=== PATIENT | female | born 1945 | race Caucasian/White ===

== ENCOUNTER → 2016-07-22 | Outpatient (CLI) | payer MEDICARE ==
--- NOTE | 2016-07-22 11:48 | US ---
EXAMINATION TYPE: US bladder DATE OF EXAM: 07/22/2016 COMPARISON: NONE CLINICAL HISTORY: Urinary tract infection N39.0. Frequent UTI's EXAM MEASUREMENTS: Post Void Residual Volume: 102.5 mL Color Doppler performed to assess ureteral jets. Bilateral Jets seen: yes Normal Post Void Residual (less than 50ml): no Images of bladder show no intraluminal mass or wall thickening. IMPRESSION: Abnormal post void residual noted.
== END | disposition home or self-care (01) ==
LOC: RADUSWWP 10:50
PROVIDERS: ATTEND Family Medicine
DX: N39.0 Urinary tract infection, site not specified (principal)
CPT/HCPCS: 76857

== ENCOUNTER → 2016-08-19 | Outpatient (CLI) | payer MEDICARE ==
--- NOTE | 2016-08-19 09:37 | US ---
EXAMINATION TYPE: US kidneys/renal and bladder DATE OF EXAM: 08/19/2016 COMPARISON: CT 12/23/2012 CLINICAL HISTORY: 71-year-old female Recurrent UTI R93.4. TECHNIQUE: Multiple sonographic images of the kidneys and bladder were obtained. FINDINGS: Right Kidney: 10.9 x 5.2 x 4.7 cm. No hydronephrosis. There is an echogenic focus at the lower pole measuring 7 mm. Left Kidney: 11.7 x 4.4 x 5.5 cm. No hydronephrosis. A round echogenic lesion in the upper pole measu res 3.6 x 2.8 x 3.2 cm. The bladder is initially partially distended. Post Void Residual Volume: 101.0 mL, abnormally eleva diana. Neither ureteral jet is seen during the course of the exam. IMPRESSION: 1. No hydronephrosis. 2. Hyperechoic lesion left upper pole redemonstrated. However, as compared to the 2013 CT, it has enl arged from 2.9 cm now measuring 3.6 cm. 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 Note that there is increasing risk for spontaneous hemorrhage when the lesion measures 4 cm or greater. Follow-up as indicated. 3. Sonographic findings suggest urinary retention with an abnormal post void bladder volume of 101 mL .
== END | disposition home or self-care (01) ==
LOC: RADUSWWP 08:47
PROVIDERS: ATTEND Urology
DX: N28.9 Disorder of kidney and ureter, unspecified (principal); N39.0 Urinary tract infection, site not specified
CPT/HCPCS: 76770

== ENCOUNTER → 2019-01-24 | Outpatient (CLI) | payer MEDICARE ==
--- NOTE | 2019-01-24 14:11 | CT ---
EXAMINATION TYPE: CT abdomen pelvis w con DATE OF EXAM: 01/24/2019 HISTORY: Right flank pain and nausea. CT DLP: 1608.2mGycm Automated Exposure Control for Dose Reduction was Utilized. CONTRAST: CT scan of the abdomen and pelvis is performed with IV Contrast, patient injected with 100 mL of Isov ue 300. COMPARISON: Renal ultrasound August 19, 2016. CT abdomen and pelvis December 23, 2012. FINDINGS: LUNG BASES: Coronary artery calcification RCA distribution is redemonstrated. Calcification at level of the mitral valve again seen LIVER/GB: Cholecystectomy clips are redemonstrated. PANCREAS: No significant abnormality is seen. SPLEEN: No significant abnormality is seen. ADRENALS: No significant abnormality is seen. KIDNEYS: Symmetric cortical medullary uptake and excretion from both kidneys. There is persistent exo phytic round mass anterior from upper pole left kidney measuring 3.5 x 2.7 cm axial image 22-containi ng fat and soft tissue density consistent with angiomyolipoma. This is slightly increased in size fro m 2013. New 4 to 5 mm calculus lower pole right kidney coronal image 58. No left-sided renal calculi. New mild pyelocaliectasis without significant hydroureter or obstructing ureteral calculi. Focus of calcification measuring 5 mm long axis in bladder dependently just left of midline axial image 69 not significantly changed from 2013 suspected within bladder wall, consider product of chronic inflammat ion. BOWEL: Oral contrast reaches level distal transverse colon. No suspicious small or large bowel dilata tion. Moderate prominence of fecal material in rectum.. UTERUS/ADNEXA: Uterus surgically absent. A few scattered adjacent pelvic phleboliths. Appendix normal in size from base of cecum in the right lower quadrant. LYMPH NODES: No greater than 1cm abdominal or pelvic lymph nodes are appreciated. OSSEOUS STRUCTURES: No significant abnormality is seen. OTHER: No significant additional abnormality is seen. IMPRESSION: There is mild bilateral pyelocaliectasis without hydroureter or obstructing ureteral calc vazquez. There is incidental new 4 to 5 mm lower pole nonobstructing right renal calculus. No acute findi ngs seen to account for patient's right flank pain and nausea.
== END | disposition home or self-care (01) ==
LOC: RADCTMAIN 10:57
PROVIDERS: ATTEND Family Medicine
DX: N20.0 Calculus of kidney (principal); N13.30 Unspecified hydronephrosis
CPT/HCPCS: 74177; Q9967 ×2

== ENCOUNTER 2020-04-12 11:36 | Day surgery (SDC) | payer MEDICARE ==
[2020-04-11 12:15] VITALS: BMI 36.6
[~2020-04-12 11:36] MED LIST: LACTATED RINGERS 1,000 ML IV SCH
[2020-04-12 12:08] VITALS: RESP 16; TEMP 98.8
[2020-04-12] MEDS ORDERED: ONDANSETRON 4 MG/2 ML VIAL ONE (12:27)
[2020-04-12] MEDS ORDERED: LIDOCAINE 1% INJ 10MG/ML (20 ML MDV) ONE (12:43)
[2020-04-12] MEDS ORDERED: PROPOFOL 10 MG/ML 20 ML VIAL IV ONE (12:43)
--- NOTE | 2020-04-12 13:05 | P.PCN ---
Date of Procedure: 04/12/20 Procedure(s) Performed: BRIEF HISTORY: Patient is a 74-year-old pleasant White female scheduled for an elective colonoscopy as a part of Evaluation of prior history of colon polyps. Last colonoscopy was 8 years ago. PROCEDURE PERFORMED: Colonoscopy with snare polypectomy PREOPERATIVE DIAGNOSIS: History of colon polyps. IV sedation per Anesthesia. PROCEDURE: After informed consent was obtained, the patient, was brought into the endoscopy unit. IV sedation was administered by Anesthesia under continuous monitoring. Digital rectal examination was normal. Initially the Olympus CF-160 flexible video colonoscope was then inserted in the rectum, gradually advanced into the cecum without any difficulty. Careful examination was performed as the scope was gradually being withdrawn. Ileocecal valve and the appendiceal orifice were visualized and appeared normal. Prep was excellent. Mucosa of the cecum, normal. In the ascending colon there was a 1 cm broad-based polyp removed by snare polypectomy. In the hepatic flexure there was a 5 mm polyp removed by snare polypectomy. In the transverse colon there was another 5 mm sessile polyp removed by snare polypectomy and in the descending colon there was a 1 cm polyp removed by snare polypectomy. Rest of the ascending colon, transverse colon, descending colon, sigmoid colon, and rectum appeared normal. Retroflexion was performed in the rectum and no lesions were seen. The patient tolerated the procedure well. IMPRESSION: 1 cm ascending colon polyp status post polypectomy 5 mm hepatic flexure polyp status post polypectomy 5 mm transverse colon polyp status post polypectomy 1 cm descending colon polyp status post polypectomy RECOMMENDATIONS: Findings of this examination were discussed with the patient as well as a family. she was advised to follow with the biopsy results. If the biopsy shows an adenoma she can have a repeat colonoscopy in 3 years. .
[2020-04-12 13:25] VITALS: BP 110/71; PULSE 68
== END 2020-04-12 13:57 | disposition home or self-care (01) ==
LOC: ORWHC2ENDO 11:36
PROVIDERS: ATTEND Internal Medicine Gastroenterology
DX: Z12.11 Encounter for screening for malignant neoplasm of colon (principal); D12.2 Benign neoplasm of ascending colon; D12.3 Benign neoplasm of transverse colon; D12.4 Benign neoplasm of descending colon; Z86.010 Personal history of colon polyps; J45.909 Unspecified asthma, uncomplicated; F31.9 Bipolar disorder, unspecified; Z79.899 Other long term (current) drug therapy; Z88.5 Allergy status to narcotic agent
CPT/HCPCS: 88305; 45385; J2405; J2001; J2704

== ENCOUNTER → 2020-06-20 | Outpatient (CLI) | payer MEDICARE ==
--- NOTE | 2020-06-21 14:59 | MM ---
Reason for exam: screening (asymptomatic). Last mammogram was performed 2 years and 6 months ago. History: Patient is postmenopausal. Family history of breast cancer in grandmother. Took estrogen for 7 years 1 month. Physical Findings: A clinical breast exam by your physician is recommended on an annual basis and results should be correlated with mammographic findings. MG 3D Screening Mammo W/Cad Bilateral CC and MLO view(s) were taken. Prior study comparison: December 20, 2017, bilateral MG 3d screening mammo w/cad. February 05, 2016, bilateral MG 3d screening mammo w/cad. The breast tissue is almost entirely fat. No significant changes when compared with prior studies. ASSESSMENT: Benign, BI-RAD 2 RECOMMENDATION: Routine screening mammogram of both breasts in 1 year.
== END | disposition home or self-care (01) ==
LOC: RADMAMWWP 14:03
PROVIDERS: ATTEND Family Medicine
DX: Z12.31 Encounter for screening mammogram for malignant neoplasm of breast (principal); Z78.0 Asymptomatic menopausal state; Z80.3 Family history of malignant neoplasm of breast
CPT/HCPCS: 77063; 77067

== ENCOUNTER → 2021-06-12 | Outpatient (CLI) | payer MEDICARE ==
--- NOTE | 2021-06-12 12:05 | CT ---
EXAMINATION TYPE: CT angio chest DATE OF EXAM: 06/12/2021 COMPARISON: None HISTORY: PE CT DLP: 503.50 mGycm CONTRAST: CT chest with contrast and 3D reconstruction with MIP imaging is performed without and with IV Contra st, patient injected with 100 ml mL of Isovue 370. Contrast-enhanced CT of the chest was performed through the course of the pulmonary arteries with atif g and mediastinal window settings submitted. 3D reconstruction with MIP imaging was also performed. PULMONARY ARTERIES: The pulmonary arteries and their major tributaries are patent. I do not see mayelin dence for sizable filling defect to suggest pulmonary embolic process. LUNGS: The lungs are clear and free of infiltrate. No evidence for atelectasis. No pulmonary nodule or mass is detected. No pleural effusion. MEDIASTINUM: Thoracic aorta is of normal caliber,however, evaluation is limited given timing of the contrast bolus. If there is concern for thoracic aortic pathology consider ARLINE. Correlate clinicall y . The heart is not enlarged. No evidence for mediastinal mass. No mediastinal lymph nodes greater than 1cm. HILAR STRUCTURES: No evidence for mass. No hilar lymph nodes greater than 1 cm. UPPER ABDOMEN: No significant abnormality is seen. IMPRESSION: 1. No evidence for Pulmonary embolism at this time.
== END | disposition home or self-care (01) ==
LOC: RADCTMAIN 10:26
PROVIDERS: ATTEND Family Medicine
DX: I26.99 Other pulmonary embolism without acute cor pulmonale (principal)
CPT/HCPCS: 82565; 84520; 71275; 36415; Q9967

== ENCOUNTER 2021-10-08 16:10 | Emergency (ER) | payer MEDICARE ==
[2021-10-08 16:20] VITALS: TEMP 98
--- NOTE | 2021-10-08 17:04 | ED ---
Lower Extremity Injury HPI - General Chief Complaint: Extremity Injury, Lower Stated Complaint: lower back pain, r/o blood clot Time Seen by Provider: 10/08/21 16:55 Source: patient, RN notes reviewed, old records reviewed Mode of arrival: ambulatory Limitations: no limitations - History of Present Illness Initial Comments: 76-year-old female sent by Dr. Duncan for rule out DVT of left leg. Patient states that she's had increased pain and swelling to the calf for the past 3 days. She is currently being treated for cellulitis of the right leg. Denies any fevers, chest pain or shortness of breath. -: days(s) (3) Severity scale (1-10): 5 Worsens With: palpation - Related Data Home Medications Medication Instructions Recorded Confirmed ALPRAZolam [Xanax] 0.25 mg PO BID PRN 03/26/20 04/12/20 lamoTRIgine [LaMICtal] 150 mg PO DAILY 03/26/20 04/12/20 Allergies Allergy/AdvReac Type Severity Reaction Status Date / Time codeine Allergy Nausea & Verified 10/08/21 16:20 Vomiting Review of Systems ROS Statement: Those systems with pertinent positive or pertinent negative responses have been documented in the HPI. ROS Other: All systems not noted in ROS Statement are negative. Past Medical History Past Medical History: Asthma, Osteoarthritis (OA) Additional Past Medical History / Comment(s): Hx pancreatitis History of Any Multi-Drug Resistant Organisms: None Reported Past Surgical History: Hysterectomy, Joint Replacement, Orthopedic Surgery Additional Past Surgical History / Comment(s): Right knee replacement, cystocele, rectocele, Rt shoulder rotator cuff Past Anesthesia/Blood Transfusion Reactions: Family History of Problems w/ Anesthesia, Postoperative Nausea & Vomiting (PONV) Additional Past Anesthesia/Blood Transfusion Reaction / Comment(s): Mother has PONV Past Psychological History: Anxiety, Bipolar Smoking Status: Never smoker Past Alcohol Use History: None Reported Past Drug Use History: None Reported - Past Family History Brother(s) Family Medical History: Cancer Additional Family Medical History / Comment(s): throat, lung cancer General Exam Limitations: no limitations General appearance: alert, in no apparent distress Eye exam: Absent: scleral icterus, conjunctival injection Respiratory exam: Absent: respiratory distress, accessory muscle use Cardiovascular Exam: Present: regular rate Extremities exam: Present: pedal edema Left Lower Leg exam: Present: full ROM, tenderness, swelling, Homans' sign Right Lower Leg exam: Present: tenderness (Currently being treated for cellulitis ) Course Vital Signs 10/08/21 10/08/21 16:17 18:56 Temperature 98 F Pulse Rate 92 91 Respiratory 20 18 Rate Blood Pressure 173/91 158/92 O2 Sat by Pulse 97 96 Oximetry Medical Decision Making - Medical Decision Making Patient sent by primary care doctor to rule out DVT left leg. Ultrasound Doppler left lower extremity shows evidence of chronic deep vein thrombosis in the mid femoral vein She states she was diagnosed with a DVT in the left leg and had an IVC filter placed at [facility] in August and was on heparin at that time. She started to bleed within the right leg therefore they discontinued her heparin. Patient's leg is pink warm with strong pedal pulses. Case discussed with Dr. Sierra. This appears to be a chronic DVT. At this time we will not reinitiate anticoagulation and patient will be directed to follow up with primary care doctor and vascular. I discussed results with the patient and she is agreeable to this plan of care. Strict return parameters were discussed. 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 Duncan and vascular as directed. Return to the emergency room with any new or concerning symptoms including increased pain, pallor or discoloration. Is patient prescribed a controlled substance at d/c from ED?: No Referrals: Lj Duncan DO [Primary Care Provider] - 1-2 days Elia Romero DO [STAFF PHYSICIAN] - 1-2 days Time of Disposition: 19:02
--- NOTE | 2021-10-08 18:17 | US ---
EXAMINATION TYPE: US venous doppler duplex LE LT DATE OF EXAM: 10/08/2021 6:06 PM COMPARISON: NONE CLINICAL HISTORY: r/o dvt. Patient states she had a DVT in her left leg diagnosed at [facility] in of August. Patient states she was on heparin, but not anymore. Left calf pain SIDE PERFORMED: Left TECHNIQUE: The lower extremity deep venous system is examined utilizing real time linear array sonog marisa with graded compression, doppler sonography and color-flow sonography. VESSELS IMAGED: Common Femoral Vein Deep Femoral Vein Greater Saphenous Vein * Femoral Vein Popliteal Vein Small Saphenous Vein * Proximal Calf Veins (* superficial vessels) Left Leg: Echoes seen in mid femoral vein and was partially compressible. Prox and distal fem vein a ppear wnl. IMPRESSION: There is evidence for some chronic deep vein thrombosis in the mid femoral vein.
[2021-10-08 18:58] VITALS: BP 158/92; PULSE 91; RESP 18
== END 2021-10-08 19:17 | disposition home or self-care (01) ==
LOC: EC 16:10
DX: I82.512 Chronic embolism and thrombosis of left femoral vein (principal); J45.909 Unspecified asthma, uncomplicated; M19.90 Unspecified osteoarthritis, unspecified site; F41.9 Anxiety disorder, unspecified; F31.9 Bipolar disorder, unspecified; Z88.5 Allergy status to narcotic agent; Z79.899 Other long term (current) drug therapy
CPT/HCPCS: 99283

== ENCOUNTER 2022-01-02 16:13 | Emergency (ER) | payer MEDICARE ==
[2022-01-02 17:15] VITALS: BP 140/81; PULSE 76; RESP 20; TEMP 98.1
--- NOTE | 2022-01-02 17:47 | US ---
EXAMINATION TYPE: US venous doppler duplex LE RT DATE OF EXAM: 01/02/2022 5:40 PM COMPARISON: NONE CLINICAL HISTORY: Pain. Bruising to right ankle, h/o dvt in left leg a year ago SIDE PERFORMED: Right TECHNIQUE: The lower extremity deep venous system is examined utilizing real time linear array sonog marisa with graded compression, doppler sonography and color-flow sonography. VESSELS IMAGED: Common Femoral Vein Deep Femoral Vein Greater Saphenous Vein * Femoral Vein Popliteal Vein Small Saphenous Vein * Proximal Calf Veins (* superficial vessels) Right Leg: Negative for DVT IMPRESSION: No sign of deep vein thrombosis in the right leg.
--- NOTE | 2022-01-02 19:18 | ED ---
General Adult HPI - General Chief complaint: Extremity Injury, Lower Stated complaint: Poss blood clot in R leg Time Seen by Provider: 01/02/22 18:49 Source: patient Mode of arrival: ambulatory Limitations: no limitations - History of Present Illness Initial comments: Patient is a 76-year-old female presenting with chief complaint of bruising to the right lower leg. Patient is concerned for blood clot. Patient has history of blood clots. She currently has an IVC filter. No known injury or trauma. No numbness or tingling. No redness or swelling. No fever or chills. No chest pain or difficulty breathing. No discoloration. - Related Data Home Medications Medication Instructions Recorded Confirmed ALPRAZolam [Xanax] 0.25 mg PO BID PRN 03/26/20 04/12/20 lamoTRIgine [LaMICtal] 150 mg PO DAILY 03/26/20 04/12/20 Allergies Allergy/AdvReac Type Severity Reaction Status Date / Time codeine Allergy Nausea & Verified 01/02/22 17:15 Vomiting Review of Systems ROS Statement: Those systems with pertinent positive or pertinent negative responses have been documented in the HPI. ROS Other: All systems not noted in ROS Statement are negative. Past Medical History Past Medical History: Asthma, Osteoarthritis (OA) Additional Past Medical History / Comment(s): Hx pancreatitis, DVT History of Any Multi-Drug Resistant Organisms: None Reported Past Surgical History: Hysterectomy, Joint Replacement, Orthopedic Surgery Additional Past Surgical History / Comment(s): Right knee replacement, cystocele, rectocele, Rt shoulder rotator cuff Past Anesthesia/Blood Transfusion Reactions: Family History of Problems w/ Anesthesia, Postoperative Nausea & Vomiting (PONV) Additional Past Anesthesia/Blood Transfusion Reaction / Comment(s): Mother has PONV Past Psychological History: Anxiety, Bipolar Smoking Status: Never smoker Past Alcohol Use History: Occasional Past Drug Use History: None Reported - Past Family History Brother(s) Family Medical History: Cancer Additional Family Medical History / Comment(s): throat, lung cancer General Exam Limitations: no limitations General appearance: alert, in no apparent distress Head exam: Present: atraumatic, normocephalic, normal inspection Eye exam: Present: normal appearance Neck exam: Present: normal inspection Respiratory exam: Present: normal lung sounds bilaterally. Absent: respiratory distress, wheezes, rales, rhonchi, stridor Cardiovascular Exam: Present: regular rate, normal rhythm, normal heart sounds. Absent: systolic murmur, diastolic murmur, rubs, gallop, clicks Extremities exam: Present: normal inspection, full ROM, pedal edema (Equal bilateral edema, patient states this is her baseline). Absent: tenderness, joint swelling, calf tenderness Neurological exam: Present: alert, oriented X3, CN II-XII intact Psychiatric exam: Present: normal affect, normal mood Skin exam: Present: warm, dry, intact, other (Small area of bruising near the right ankle). Absent: rash Course Vital Signs 01/02/22 17:12 Temperature 98.1 F Pulse Rate 76 Respiratory 20 Rate Blood Pressure 140/81 O2 Sat by Pulse 96 Oximetry Medical Decision Making - Medical Decision Making Patient is a 76-year-old female presenting with chief complaint of ring to the right lower leg. Patient wants to rule out a blood clot she has history of blood clots. Patient had IVC filter. On examination there is a small amount of bruising to the right lower leg, there is equal bilateral edema which patient states is her baseline. No redness, tenderness, warmth, joint swelling, recent injury or trauma. Ultrasound shows no evidence of DVT. Follow-up with PCP. Report back to ER with any new or worsening symptoms. Discussed return parameters and answered all questions. Patient conveyed verbal understanding and agreed to the plan. I discussed this case in detail with my attending Dr. Wilson Disposition Clinical Impression: Superficial bruising of lower leg Disposition: HOME SELF-CARE Condition: Good Instructions (If sedation given, give patient instructions): Deep Vein Thrombosis (ED), Leg Edema (ED) Additional Instructions: Follow-up with PCP. Report back to ER with any new or worsening symptoms. Is patient prescribed a controlled substance at d/c from ED?: No Referrals: Lj Duncan DO [Primary Care Provider] - 1-2 days Time of Disposition: 19:18
== END 2022-01-02 19:31 | disposition home or self-care (01) ==
LOC: EC 16:13
DX: S80.11XA Contusion of right lower leg, initial encounter (principal); F41.9 Anxiety disorder, unspecified; F31.9 Bipolar disorder, unspecified; J45.909 Unspecified asthma, uncomplicated; M19.90 Unspecified osteoarthritis, unspecified site; Z79.899 Other long term (current) drug therapy; Z88.5 Allergy status to narcotic agent; X58.XXXA Exposure to other specified factors, initial encounter
CPT/HCPCS: 99282; 99283

== ENCOUNTER → 2022-06-29 | Outpatient (CLI) | payer MEDICARE ==
--- NOTE | 2022-06-30 19:50 | MM ---
Reason for Exam: Screening (asymptomatic). Last mammogram was performed 2 year(s) and 0 month(s) ago. Patient History: Menarche at age 14. First Full-Term at age 19. Left ovary removed at age 50. Right ovary removed at age 50. Hysterectomy at age 50. Postmenopausal. Patient has history of breast feeding. Estrogen for 7 years, 1 month, until age 60. Maternal grandmother had breast cancer, age 64. Risk Values: Catie 5 year model risk: 1.3%. NCI Lifetime model risk: 3.0%. Prior Study Comparison: 02/05/2016 Bilateral Screening Mammogram, [facility]. 12/20/2017 Bilateral Screening Mammogram, [facility]. 06/20/2020 Bilateral Screening Mammogram, [facility]. Tissue Density: The breast tissue is almost entirely fat. Findings: Analyzed By CAD. Chronic nodularity on the right. There is no suspicious group of microcalcifications or new suspicious mass in either breast. Overall Assessment: Benign, BI-RAD 2 Management: Screening Mammogram of both breasts in 1 year. . Patient should continue monthly self-breast exams. A clinical breast exam by your physician is recommended on an annual basis. This exam should not preclude additional follow-up of suspicious palpable abnormalities. Note on Catie scores and lifetime risk: 1. A Catie score greater than 3% is considered moderate risk. If this is the case, consider specialist referral to assess eligibility for a risk reducing agent. 2. If overall lifetime risk for the development of breast cancer is 20% or higher, the patient may qualify for future screening with alternating mammogram and breast MRI. Electronically signed and approved by: Bruna Zayas M.D. Radiologist
== END | disposition home or self-care (01) ==
LOC: RADMAMWWP 14:43
PROVIDERS: ATTEND Family Medicine
DX: Z12.31 Encounter for screening mammogram for malignant neoplasm of breast (principal); Z78.0 Asymptomatic menopausal state
CPT/HCPCS: 77063; 77067

== ENCOUNTER 2022-09-16 20:06 | Inpatient (IN) | payer MEDICARE ==
[2022-09-16] MEDS ORDERED: MORPHINE SULFATE 4 MG/ML SYRINGE IVP STA (21:13)
[2022-09-16] MEDS ORDERED: ONDANSETRON 4 MG/2 ML VIAL IVP STA (21:13)
[2022-09-16 21:23] LABS: Basophils # (A) 0.1 k/uL (0-0.2); Basophils % (A) 0 %; Eosinophils # (A) 0.2 k/uL (0-0.7); Eosinophils % (A) 1 %; HCT 41.5 % (34.0-46.0); HGB 14.3 gm/dL (11.4-16.0); Lymphocytes # (A) 2.9 k/uL (1.0-4.8); Lymphocytes % (A) 17 %; MCH 30.8 pg (25.0-35.0); MCHC 34.5 g/dL (31.0-37.0); MCV 89.2 fL (80.0-100.0); Mean Platelet Volume 7.8; Monocytes # (A) 0.7 k/uL (0-1.0); Monocytes % (A) 4 %; Neutrophils # (A) 12.7 k/uL (1.3-7.7); Neutrophils % (A) 76 %; Platelet Count 200 k/uL (150-450); RBC 4.66 m/uL (3.80-5.40); WBC 16.8 k/uL (3.8-10.6)
[2022-09-16 21:36] LABS: ALT 65 U/L (4-34); AST 39 U/L (14-36); African American GFR (CKD) >90 (>60 ml/min/1.73 sqM); Alkaline Phosphatase 88 U/L (38-126); Anion Gap 9 mmol/L; Blood Urea Nitrogen 18 mg/dL (7-17); Calcium 9.6 mg/dL (8.4-10.2); Carbon Dioxide 24 mmol/L (22-30); Chloride 104 mmol/L (98-107); Glucose 108 mg/dL (74-99); Non-African American GFR(CKD) 78 (>60 ml/min/1.73 sqM); Potassium 3.5 mmol/L (3.5-5.1); Sodium 137 mmol/L (137-145); Total Bilirubin 0.9 mg/dL (0.2-1.3); Total Protein 6.6 g/dL (6.3-8.2)
--- NOTE | 2022-09-16 22:16 | ED ---
Abdominal Pain HPI - General Chief Complaint: Abdominal Pain Stated Complaint: Back Pain,vomiting Time Seen by Provider: 09/16/22 21:02 Source: patient Mode of arrival: wheelchair Limitations: no limitations - History of Present Illness Initial Comments: 77-year-old female presenting with chief complaint of right-sided flank pain. Pain came on suddenly 1 hour prior to arrival. States that the pain is sharp in nature. She admits to nausea. She states that she has history of recurrent UTIs. Patient states that she was on long-term prednisone and was weaned off 9 weeks ago. No fevers or chills. No chest pain or difficulty breathing. No dysuria or hematuria. No diarrhea. - Related Data Home Medications Medication Instructions Recorded Confirmed ALPRAZolam [Xanax] 0.25 mg PO BID PRN 03/26/20 04/12/20 lamoTRIgine [LaMICtal] 150 mg PO DAILY 03/26/20 04/12/20 Allergies Allergy/AdvReac Type Severity Reaction Status Date / Time codeine Allergy Nausea & Verified 09/16/22 20:15 Vomiting Review of Systems ROS Statement: Those systems with pertinent positive or pertinent negative responses have been documented in the HPI. ROS Other: All systems not noted in ROS Statement are negative. Past Medical History Past Medical History: Asthma, Deep Vein Thrombosis (DVT), Osteoarthritis (OA) Additional Past Medical History / Comment(s): Hx pancreatitis, DVT, kidney stones, History of Any Multi-Drug Resistant Organisms: None Reported Past Surgical History: Hysterectomy, Joint Replacement, Orthopedic Surgery Additional Past Surgical History / Comment(s): Right knee replacement, cystocele, rectocele, Rt shoulder rotator cuff Past Anesthesia/Blood Transfusion Reactions: Family History of Problems w/ Anesthesia, Postoperative Nausea & Vomiting (PONV) Additional Past Anesthesia/Blood Transfusion Reaction / Comment(s): Mother has PONV Past Psychological History: Anxiety, Bipolar Smoking Status: Never smoker Past Alcohol Use History: Occasional Past Drug Use History: None Reported - Past Family History Brother(s) Family Medical History: Cancer Additional Family Medical History / Comment(s): throat, lung cancer General Exam Limitations: no limitations General appearance: alert, in no apparent distress Head exam: Present: atraumatic, normocephalic, normal inspection Eye exam: Present: normal appearance, EOMI Neck exam: Present: normal inspection, full ROM Respiratory exam: Present: normal lung sounds bilaterally. Absent: respiratory distress, wheezes, rales, rhonchi, stridor Cardiovascular Exam: Present: regular rate, normal rhythm, normal heart sounds. Absent: systolic murmur, diastolic murmur, rubs, gallop, clicks GI/Abdominal exam: Present: soft, tenderness (Right-sided). Absent: distended, guarding, rebound, rigid Neurological exam: Present: alert, oriented X3, CN II-XII intact Psychiatric exam: Present: normal affect, normal mood Skin exam: Present: warm, dry, intact, normal color. Absent: rash Course Vital Signs 09/16/22 09/16/22 09/16/22 20:15 21:37 23:17 Temperature 98.8 F Pulse Rate 88 75 89 Respiratory 30 H 20 Rate Blood Pressure 168/75 193/109 150/84 O2 Sat by Pulse 97 98 96 Oximetry Medical Decision Making - Medical Decision Making Was pt. sent in by a medical professional or institution (, PA, RULING MACHINE OPERATOR, urgent care, hospital, or custodial...) When possible be specific @ -No Did you speak to anyone other than the patient for history (EMS, parent, family, police, friend...)? What history was obtained from this source @ -No Did you review nursing and triage notes (agree or disagree)? Why? @ -I reviewed and agree with nursing and triage notes Were old charts reviewed (outside hosp., previous admission, EMS record, old EKG, old radiological studies, urgent care reports/EKG's, custodial records)? Report findings @ -No old charts were reviewed Differential Diagnosis (chest pain, altered mental status, abdominal pain women, abdominal pain men, vaginal bleeding, weakness, fever, dyspnea, syncope, headache, dizziness, GI bleed, back pain, seizure, CVA, palpatations, mental health, musculoskeletal)? @ -MDM Differential Abdominal Pain Women: Appendicitis, Cholecystitis, diverticulosis, ischemic bowel, pancreatitis, hepatitis, UTI, gastroenteritis, AAA, incarcerated hernia, bowel obstruction, constipation, inflammatory bowel, hepatitis, peptic ulcer disease, splenic infarction, perforated viscus, vulvitis, ovarian torsion, PID, kidney stone, placenta abruption... This is not meant to be an all-inclusive list EKG interpreted by me (3pts min.). @ -As above X-rays interpreted by me (1pt min.). @ -None done CT interpreted by me (1pt min.). @ -Stone within the proximal right ureter measuring 1.3 x 0.4 cm which causes moderate hydronephrosis. 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 Hepatic steatosis. 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 U/S interpreted by me (1pt. min.). @ -None done What testing was considered but not performed or refused? (CT, X-rays, U/S, lab s)? Why? @ -None What meds were considered but not given or refused? Why? @ -None Did you discuss the management of the patient with other professionals (professionals i.e. , PA, RULING MACHINE OPERATOR, lab, RT, psych nurse, social work therapist, fitting room associate, teacher, chief security officer, watch caser)? Give summary @ -I spoke with urologist elocution teacher Dr. Acosta, he asked that the patient be placed nothing by mouth and he will stent the patient tomorrow, he requested the patient be admitted to hospitalist. My attending spoke with Dr. Linares who accepted admission Was smoking cessation discussed for >3mins.? @ -No Was critical care preformed (if so, how long)? @ -No Were there social determinants of health that impacted care today? How? (Homelessness, low income, unemployed, alcoholism, drug addiction, transportation, low edu. Level, literacy, decrease access to med. care, [place] [facility], rehab)? @ -No Was there de-escalation of care discussed even if they declined (Discuss DNR or withdrawal of care, Hospice)? DNR status @ -No What co-morbidities impacted this encounter? (DM, HTN, Smoking, COPD, CAD, Cancer, CVA, ARF, Chemo, Hep., AIDS, mental health diagnosis, sleep apnea, morbid obesity)? @ -None Was patient admitted / discharged? Hospital course, mention meds given and route, prescriptions, significant lab abnormalities, going to OR and other pertinent info. @ -77-year-old female presenting with flank pain that started suddenly about an hour prior to arrival. Lab work shows WBC 16.8. Urine shows signs of infection with greater than [address] shows 13 cm obstructing stone. Patient is placed on ceftriaxone after blood cultures are drawn. She will be admitted for evaluation by urology. She is agreeable with this plan. I discussed this case with my attending Dr. Sanders. Undiagnosed new problem with uncertain prognosis? @ -No Drug Therapy requiring intensive monitoring for toxicity (Heparin, Nitro, Insulin, Cardizem)? @ -No Were any procedures done? @ -No Diagnosis/symptom? @ -Kidney stone with pyelonephritis Acute, or Chronic, or Acute on Chronic? @ -acute Uncomplicated (without systemic symptoms) or Complicated (systemic symptoms)? @ -Complicated Side effects of treatment? @ -No Exacerbation, Progression, or Severe Exacerbation? @ -No Poses a threat to life or bodily function? How? (Chest pain, [place], [place], pneumonia, PE, COPD, DKA, ARF, appy, cholecystitis, CVA, Diverticulitis, Homicidal, Suicidal, threat to staff... and all critical care pts) @ -yes - Lab Data Result diagrams: 09/16/22 21:16 09/16/22 21:16 Lab Results 09/16/22 09/16/22 09/16/22 Range/Units 21:16 21:16 21:16 WBC 16.8 H (3.8-10.6) k/uL RBC 4.66 (3.80-5.40) m/uL Hgb 14.3 (11.4-16.0) gm/dL Hct 41.5 (34.0-46.0) % MCV 89.2 (80.0-100.0) fL MCH 30.8 (25.0-35.0) pg MCHC 34.5 (31.0-37.0) g/dL RDW 13.0 (11.5-15.5) % Plt Count 200 (150-450) k/uL MPV 7.8 Neutrophils % 76 % Lymphocytes % 17 % Monocytes % 4 % Eosinophils % 1 % Basophils % 0 % Neutrophils # 12.7 H (1.3-7.7) k/uL Lymphocytes # 2.9 (1.0-4.8) k/uL Monocytes # 0.7 (0-1.0) k/uL Eosinophils # 0.2 (0-0.7) k/uL Basophils # 0.1 (0-0.2) k/uL Sodium 137 (137-145) mmol/L Potassium 3.5 (3.5-5.1) mmol/L Chloride 104 (98-107) mmol/L Carbon Dioxide 24 (22-30) mmol/L Anion Gap 9 mmol/L BUN 18 H (7-17) mg/dL Creatinine 0.75 (0.52-1.04) mg/dL Est GFR (CKD-EPI)AfAm >90 (>60 ml/min/1.73 sqM) Est GFR (CKD-EPI)NonAf 78 (>60 ml/min/1.73 sqM) Glucose 108 H (74-99) mg/dL Plasma Lactic Acid Ishmale 1.4 (0.7-2.0) mmol/L Calcium 9.6 (8.4-10.2) mg/dL Total Bilirubin 0.9 (0.2-1.3) mg/dL AST 39 H (14-36) U/L ALT 65 H (4-34) U/L Alkaline Phosphatase 88 (38-126) U/L Total Protein 6.6 (6.3-8.2) g/dL Albumin 4.0 (3.5-5.0) g/dL Urine Color Urine Appearance (Clear) Urine pH (5.0-8.0) Ur Specific [place] (1.001-1.035) Urine Protein (Negative) Urine Glucose (UA) (Negative) Urine Ketones (Negative) Urine Blood (Negative) Urine Nitrite (Negative) Urine Bilirubin (Negative) Urine Urobilinogen (<2.0) mg/dL Ur Leukocyte Esterase (Negative) Urine RBC (0-5) /hpf Urine WBC (0-5) /hpf Urine WBC Clumps (None) /hpf Ur Squamous Epith Cells (0-4) /hpf Urine Bacteria (None) /hpf Urine Mucus (None) /hpf 09/16/22 Range/Units 22:20 WBC (3.8-10.6) k/uL RBC (3.80-5.40) m/uL Hgb (11.4-16.0) gm/dL Hct (34.0-46.0) % MCV (80.0-100.0) fL MCH (25.0-35.0) pg MCHC (31.0-37.0) g/dL RDW (11.5-15.5) % Plt Count (150-450) k/uL MPV Neutrophils % % Lymphocytes % % Monocytes % % Eosinophils % % Basophils % % Neutrophils # (1.3-7.7) k/uL Lymphocytes # (1.0-4.8) k/uL Monocytes # (0-1.0) k/uL Eosinophils # (0-0.7) k/uL Basophils # (0-0.2) k/uL Sodium (137-145) mmol/L Potassium (3.5-5.1) mmol/L Chloride (98-107) mmol/L Carbon Dioxide (22-30) mmol/L Anion Gap mmol/L BUN (7-17) mg/dL Creatinine (0.52-1.04) mg/dL Est GFR (CKD-EPI)AfAm (>60 ml/min/1.73 sqM) Est GFR (CKD-EPI)NonAf (>60 ml/min/1.73 sqM) Glucose (74-99) mg/dL Plasma Lactic Acid [place]ma[place] (0.7-2.0) mmol/L Calcium (8.4-10.2) mg/dL Total Bilirubin (0.2-1.3) mg/dL AST (14-36) U/L ALT (4-34) U/L Alkaline Phosphatase (38-126) U/L Total Protein (6.3-8.2) g/dL Albumin (3.5-5.0) g/dL Urine Color Light Red Urine Appearance Turbid H (Clear) Urine pH 8.0 (5.0-8.0) Ur Specific [place] 1.021 (1.001-1.035) Urine Protein 2+ H (Negative) Urine Glucose (UA) Negative (Negative) Urine Ketones Trace H (Negative) Urine Blood Moderate H (Negative) Urine Nitrite Negative (Negative) Urine Bilirubin Negative (Negative) Urine Urobilinogen <2.0 (<2.0) mg/dL Ur Leukocyte Esterase Large H (Negative) Urine RBC 37 H (0-5) /hpf Urine WBC >182 H (0-5) /hpf Urine WBC Clumps Moderate H (None) /hpf Ur Squamous Epith Cells 2 (0-4) /hpf Urine Bacteria Occasional H (None) /hpf Urine Mucus Occasional H (None) /hpf Disposition Clinical Impression: Kidney stone, Pyelonephritis Disposition: ADMITTED IP TO THIS [facility] Condition: Fair Time of Disposition: 23:24
[2022-09-16 22:41] LABS: Appearance,Urine Turbid (Clear); Bacteria,Urine Occasional /hpf; Bilirubin,Urine Negative (Negative); Blood,Urine Moderate (Negative); Color,Urine Light Red; Glucose,Urine (UA) Negative (Negative); Ketones,Urine Trace (Negative); Leukocyte Esterase,Urine Large (Negative); Mucus,Urine Occasional /hpf; Nitrite,Urine Negative (Negative); Protein,Urine 2+ (Negative); RBC,Urine 37 /hpf (0-5); Specific Gravity,Urine 1.021 (1.001-1.035); Squamous Epithelial Cell,Urine 2 /hpf (0-4); Urobilinogen,Urine <2.0 mg/dL (<2.0); WBC,Urine >182 /hpf (0-5)
--- NOTE | 2022-09-16 23:05 | CT ---
EXAM: CT Abdomen and Pelvis Without Intravenous Contrast CLINICAL HISTORY: ITS.REASON CT Reason: R flank pain TECHNIQUE: Axial computed tomography images of the abdomen and pelvis without intravenous contrast. CTDI is 27.9 mGy and DLP is 1508.4 mGy-cm. This CT exam was performed using one or more of the following dose reduction techniques: automated exposure control, adjustment of the mA and/or kV according to patient size, and/or use of iterative reconstruction technique. COMPARISON: CT 01/24/2019 FINDINGS: ABDOMEN: Liver: Hepatic steatosis. Gallbladder and bile ducts: Cholecystectomy. Pancreas: Unremarkable. Spleen: Unremarkable. Adrenals: Unremarkable. Kidneys and ureters: Stone within the proximal right ureter measuring 1.3 x 0.4 cm which causes moderate hydronephrosis. 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 Stomach and bowel: Unremarkable. PELVIS: Appendix: No findings to suggest acute appendicitis. Bladder: Unremarkable. Reproductive: Status post hysterectomy. ABDOMEN and PELVIS: Intraperitoneal space: Unremarkable. No free air. No significant fluid collection. Bones/joints: No acute fracture. Soft tissues: Unremarkable. 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 IVC filter in place. Lymph nodes: Unremarkable. IMPRESSION: 1. Stone within the proximal right ureter measuring 1.3 x 0.4 cm which causes moderate hydronephrosis. 2. 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 3. Hepatic steatosis. 4. 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
[2022-09-16] MEDS ORDERED: cefTRIAXone IN SWFI 1,000 MG/10 ML SYRINGE IVP STA (23:16)
[2022-09-16] MEDS ORDERED: NALOXONE 0.4 MG/ML 1 ML VIAL IV PRN (23:20)
[2022-09-16] MEDS: SODIUM CHLORIDE 0.9% 1,000 ML IV SCH (23:28)
[2022-09-16] MEDS: KETOROLAC 15 MG/ML 1 ML VIAL IVP PRN (23:32)
[2022-09-17] MEDS: HYDROmorphone 1 MG/ML 1 ML SYRINGE IVP PRN ×3 (01:48→10:04)
[2022-09-17] MEDS: ONDANSETRON 4 MG/2 ML VIAL IVP PRN (05:03)
[2022-09-17] MEDS ORDERED: PROCHLORPERAZINE INJ 10 MG/2 ML VIAL IVP PRN (06:10)
[2022-09-17] MEDS: KETOROLAC 15 MG/ML 1 ML VIAL IVP PRN ×2 (06:56→20:33)
--- NOTE | 2022-09-17 10:13 | P.GSCN ---
History of Present Illness Consult date: 09/17/22 Reason for Consult: Ureteral stone History of present illness: This is a 77-year-old female presented to the hospital with a 1.3 cm right-sided proximal ureteral stone, she is having flank pain associated with nausea and vomiting. Additionally also evidence of a UTI on urinalysis. Denies any previous history of kidney stones. Denies any dysuria or gross hematuria. No known family history of kidney stone. CT on presentation did show evidence of a 1.3 cm right-sided proximal stone with hydronephrosis. Additionally there is also evidence of a 5 cm left-sided angiomyolipoma. Review of Systems - Constitutional Reports fatigue, Denies chills, Denies fever - Cardiovascular Denies chest pain, Denies shortness of breath - Respiratory Denies cough, Denies 7 - Gastrointestinal Reports abdominal pain, Reports nausea, Reports vomiting - Genitourinary Genitourinary: Reports flank pain, Denies hematuria - Neurological Denies headaches, Denies syncope Past Medical History Past Medical History: Asthma, Deep Vein Thrombosis (DVT), Osteoarthritis (OA) Additional Past Medical History / Comment(s): Hx pancreatitis, DVT, kidney stones, History of Any Multi-Drug Resistant Organisms: None Reported Past Surgical History: Hysterectomy, Joint Replacement, Orthopedic Surgery Additional Past Surgical History / Comment(s): Right knee replacement, cystocele, rectocele, Rt shoulder rotator cuff Past Anesthesia/Blood Transfusion Reactions: Family History of Problems w/ Anesthesia, Postoperative Nausea & Vomiting (PONV) Additional Past Anesthesia/Blood Transfusion Reaction / Comm: Mother has PONV Past Psychological History: Anxiety, Bipolar Smoking Status: Never smoker Past Alcohol Use History: Occasional Past Drug Use History: None Reported - Past Family History Brother(s) Family Medical History: Cancer Additional Family Medical History / Comment(s): throat, lung cancer Medications and Allergies Home Medications Medication Instructions Recorded Confirmed Type ALPRAZolam [Xanax] 0.25 mg PO DAILY PRN 03/26/20 09/17/22 History Furosemide [Lasix] 20 mg PO DAILY 09/17/22 09/17/22 History Metoprolol Succinate (ER) [Toprol 50 mg PO DAILY 09/17/22 09/17/22 History Xl] Vitamin B Complex 1 cap PO DAILY 09/17/22 09/17/22 History Vitamin D3(Unknown Dose) 1 tab PO DAILY 09/17/22 09/17/22 History lamoTRIgine [LaMICtal] 100 mg PO DAILY 09/17/22 09/17/22 History traZODone HCL [Desyrel] 50 mg PO HS 09/17/22 09/17/22 History Allergies Allergy/AdvReac Type Severity Reaction Status Date / Time codeine Allergy Rash/Hives Verified 09/17/22 09:38 Surgical - Exam Vital Signs Temp Pulse Resp BP Pulse Ox 98.8 F 88 30 H 168/75 97 09/16/22 20:15 09/16/22 20:15 09/16/22 20:15 09/16/22 20:15 09/16/22 20:15 - General no distress, moderate pain - Eyes normal ocular movement, no pale - ENT normal nares, normal mucosa - Respiratory normal expansion, normal respiratory effort - Abdomen Abdomen: soft, non tender - Psychiatric oriented to time, oriented to person, oriented to place Results - Labs 09/16/22 21:16 09/16/22 21:16 Abnormal Lab Results - Last 24 Hours (Table) 09/16/22 09/16/22 09/16/22 Range/Units 21:16 21:16 22:20 WBC 16.8 H (3.8-10.6) k/uL Neutrophils # 12.7 H (1.3-7.7) k/uL BUN 18 H (7-17) mg/dL Glucose 108 H (74-99) mg/dL AST 39 H (14-36) U/L ALT 65 H (4-34) U/L Urine Appearance Turbid H (Clear) Urine Protein 2+ H (Negative) Urine Ketones Trace H (Negative) Urine Blood Moderate H (Negative) Ur Leukocyte Esterase Large H (Negative) Urine RBC 37 H (0-5) /hpf Urine WBC >182 H (0-5) /hpf Urine WBC Clumps Moderate H (None) /hpf Urine Bacteria Occasional H (None) /hpf Urine Mucus Occasional H (None) /hpf Diabetes panel 09/16/22 Range/Units 21:16 Sodium 137 (137-145) mmol/L Potassium 3.5 (3.5-5.1) mmol/L Chloride 104 (98-107) mmol/L Carbon Dioxide 24 (22-30) mmol/L BUN 18 H (7-17) mg/dL Creatinine 0.75 (0.52-1.04) mg/dL Glucose 108 H (74-99) mg/dL Calcium 9.6 (8.4-10.2) mg/dL AST 39 H (14-36) U/L ALT 65 H (4-34) U/L Alkaline Phosphatase 88 (38-126) U/L Total Protein 6.6 (6.3-8.2) g/dL Albumin 4.0 (3.5-5.0) g/dL Calcium panel 09/16/22 Range/Units 21:16 Calcium 9.6 (8.4-10.2) mg/dL Albumin 4.0 (3.5-5.0) g/dL Pituitary panel 09/16/22 Range/Units 21:16 Sodium 137 (137-145) mmol/L Potassium 3.5 (3.5-5.1) mmol/L Chloride 104 (98-107) mmol/L Carbon Dioxide 24 (22-30) mmol/L BUN 18 H (7-17) mg/dL Creatinine 0.75 (0.52-1.04) mg/dL Glucose 108 H (74-99) mg/dL Calcium 9.6 (8.4-10.2) mg/dL Adrenal panel 09/16/22 Range/Units 21:16 Sodium 137 (137-145) mmol/L Potassium 3.5 (3.5-5.1) mmol/L Chloride 104 (98-107) mmol/L Carbon Dioxide 24 (22-30) mmol/L BUN 18 H (7-17) mg/dL Creatinine 0.75 (0.52-1.04) mg/dL Glucose 108 H (74-99) mg/dL Calcium 9.6 (8.4-10.2) mg/dL Total Bilirubin 0.9 (0.2-1.3) mg/dL AST 39 H (14-36) U/L ALT 65 H (4-34) U/L Alkaline Phosphatase 88 (38-126) U/L Total Protein 6.6 (6.3-8.2) g/dL Albumin 4.0 (3.5-5.0) g/dL - Imaging CT scan - abdomen: image reviewed (1.3 cm right-sided proximal stone with hydronephrosis, 5 cm left-sided exophytic AML) Assessment and Plan Assessment: This is a 77-year-old female history of a 1.3 cm right ureteral stone in the UTI. Additionally also evidence of a 5 cm left-sided angiomyolipoma. Discussed with her I recommend proceeding with stent insertion given the UTI in the size of the stone. Risks benefits and rational surgery was discussed in detail. Discussed also with her she will eventually require intervention for the AML gi jami that it's greater than 4 cm meter in size. 1.Ureteral stone -OR for cystoscopy and right stent insertion 2. AML -Eventually require referral to interventional radiology for angioembolization as an outpatient
[2022-09-17] MEDS: METOPROLOL SUCCINATE (ER) 50 MG TAB.ER.24H PO SCH (10:42)
[2022-09-17] MEDS: lamoTRIgine 100 MG TAB PO SCH (10:42)
[2022-09-17] MEDS ORDERED: SODIUM CHLORIDE 0.9% 1,000 ML IV ONE ×2 (12:30→14:25)
[2022-09-17] MEDS ORDERED: ONDANSETRON 4 MG/2 ML VIAL IVP ONE (12:30)
[2022-09-17] MEDS ORDERED: DEXAMETHASONE SOD PHOSPHATE 4 MG/ML 1 ML VIAL IVP ONE (12:31)
[2022-09-17] MEDS ORDERED: MIDAZOLAM 2 MG/2 ML VIAL ONE (12:51)
[2022-09-17] MEDS ORDERED: KETAMINE 10 MG/ML 20 ML VIAL ONE (12:51)
[2022-09-17] MEDS ORDERED: LACTATED RINGERS 1,000 ML IV ONE ×2 (14:19→14:42)
--- NOTE | 2022-09-17 14:46 | FL ---
Intraoperative/procedural fluoroscopic services were provided for right ureteral stent placement. Tot al fluoroscopy time is 12 seconds with a total of 1 submitted image to PACS. Total DAP [id number] [id number]. Please see the operative note for further details.
[2022-09-17] MEDS: ENOXAPARIN 40 MG/0.4 ML SYRINGE SQ SCH (18:24)
[2022-09-17] MEDS: SODIUM CHLORIDE 0.9% 1,000 ML IV SCH ×2 (18:28→20:34)
--- NOTE | 2022-09-17 20:30 | P.HPIM ---
History of Present Illness H&P Date: 09/17/22 Chief Complaint: Right flank pain This is a pleasant 77-year-old patient who follows Dr. Duncan. Chronic stable medical conditions include asthma, Taya arthritis, prior history of DVT. Apparently patient had a bleeding with blood tenderness.. And received a [place] filter. Patient's had previous kidney stones. Yesterday around 3:00 patient started off with progressively increasing right flank pain in the back. Significant nausea vomiting. Fevers. Urine color became orangeish. Tired rundown. Presented to ER. Received a dose of IV ceftriaxone in the ER. Patient this afternoon due to go down for surgery by Dr. woodall from urology. Review of systems: GEN.: Fever chills nausea vomiting EYES: None HEENT: None NECK: None RESPIRATORY: None CARDIOVASCULAR: None GASTROINTESTINAL: As above GENITOURINARY: As above MUSCULOSKELETAL: Joint pains LYMPHATICS: None HEMATOLOGICAL: None PSYCHIATRY: None NEUROLOGICAL: None Past medical history to include: Asthma, DVT and bleeding with anticoagulants, [place] filter, kidney stones, pancreatitis, osteoarthritis, bipolar Social history: . Alcohol occasionally. No smoking. Physical examination: VITAL SIGNS: 100, 137, 20, 11 2 x 71, 91% room air GENERAL: BMI 42.1, declining but awake and comfortable. EYES: Pupils equal. Conjunctiva normal. HEENT: External appearance of nose and ears normal, oral cavity grossly normal. NECK: JVD not raised; masses not palpable. HEART: First and second heart sounds are normal; no edema. LUNGS: Respiratory rate normal; clear to auscultation. ABDOMEN: Soft, right renal angle tenderness, liver spleen not palpable, no masses palpable. PSYCH: Alert and oriented x3; mood and affect anxiousl. MUSCULOSKELETAL:No Clubbing/cyanosis;muscles-grossly intact. OA NEUROLOGICAL: Cranial nerves grossly intact; no facial asymmetry, power and sensation grossly intact. LYMPHATICS: No lymph nodes palpable in the axilla and neck INVESTIGATIONS, reviewed in the clinical context: White count 16.8 hemoglobin 14.3 platelets 200 sodium 137 potassium 3.5 BUN 18 creatinine 0.75 AST 39 in 2064 UA: Protein 2+, large leukoesterase, WBC greater than 182 CT abdomen pelvis: States stone within the proximal right ureter 1.3 x 0.4 cm causing moderate hydronephrosis. Hepatic steatosis. 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 Assessment and plan: -Acute right-sided, pyelonephritis secondary to right ureteral stone. Causing sepsis. IV ceftriaxone. IV fluids. -Right proximal ureter 1.3 x 0.4 cm stone causing moderate hydronephrosis Pending surgical intervention by Dr. woodall -Morbid obesity BMI 42.1 Weight loss measures -Primary osteoarthritis Pain medications as needed -Prior history of DVT with [place] filter -Bipolar disorder Lamictal. Desyrel. Xanax when necessary. -Essential hypertension Toprol-XL Discussed with patient. Pending surgical intervention. Subcu Lovenox. Past Medical History Past Medical History: Asthma, Deep Vein Thrombosis (DVT), Osteoarthritis (OA) Additional Past Medical History / Comment(s): Hx pancreatitis, DVT, kidney stones, History of Any Multi-Drug Resistant Organisms: None Reported Past Surgical History: Hysterectomy, Joint Replacement, Orthopedic Surgery Additional Past Surgical History / Comment(s): Right knee replacement, cystocele, rectocele, Rt shoulder rotator cuff Past Anesthesia/Blood Transfusion Reactions: Family History of Problems w/ Anesthesia, Postoperative Nausea & Vomiting (PONV) Additional Past Anesthesia/Blood Transfusion Reaction / Comment(s): Mother has PONV Past Psychological History: Anxiety, Bipolar Smoking Status: Never smoker Past Alcohol Use History: Occasional Past Drug Use History: None Reported - Past Family History Brother(s) Family Medical History: Cancer Additional Family Medical History / Comment(s): throat, lung cancer Medications and Allergies Home Medications Medication Instructions Recorded Confirmed Type ALPRAZolam [Xanax] 0.25 mg PO DAILY PRN 03/26/20 09/17/22 History Furosemide [Lasix] 20 mg PO DAILY 09/17/22 09/17/22 History Metoprolol Succinate (ER) [Toprol 50 mg PO DAILY 09/17/22 09/17/22 History Xl] Vitamin B Complex 1 cap PO DAILY 09/17/22 09/17/22 History Vitamin D3(Unknown Dose) 1 tab PO DAILY 09/17/22 09/17/22 History lamoTRIgine [LaMICtal] 100 mg PO DAILY 09/17/22 09/17/22 History traZODone HCL [Desyrel] 50 mg PO HS 09/17/22 09/17/22 History Allergies Allergy/AdvReac Type Severity Reaction Status Date / Time codeine Allergy Rash/Hives Verified 09/17/22 09:38 Physical Exam Vitals: Vital Signs Temp Pulse Pulse Resp BP BP Pulse Ox 09/17/22 07:52 100.0 F H 137 H 20 112/71 91 L 09/17/22 01:05 97.5 F L 80 18 151/75 93 L 09/17/22 00:30 97.2 F L 88 18 144/77 98 09/16/22 23:17 89 150/84 96 09/16/22 21:37 75 20 193/109 98 09/16/22 20:15 98.8 F 88 30 H 168/75 97 Intake and Output 09/16/22 09/17/22 09/17/22 22:59 06:59 14:59 Other: Voiding Method Toilet Weight 104.326 kg 104.326 kg Results CBC & Chem 7: 09/16/22 21:16 09/16/22 21:16 Labs: Abnormal Lab Results - Last 24 Hours (Table) 09/16/22 09/16/22 09/16/22 Range/Units 21:16 21:16 22:20 WBC 16.8 H (3.8-10.6) k/uL Neutrophils # 12.7 H (1.3-7.7) k/uL BUN 18 H (7-17) mg/dL Glucose 108 H (74-99) mg/dL AST 39 H (14-36) U/L ALT 65 H (4-34) U/L Urine Appearance Turbid H (Clear) Urine Protein 2+ H (Negative) Urine Ketones Trace H (Negative) Urine Blood Moderate H (Negative) Ur Leukocyte Esterase Large H (Negative) Urine RBC 37 H (0-5) /hpf Urine WBC >182 H (0-5) /hpf Urine WBC Clumps Moderate H (None) /hpf Urine Bacteria Occasional H (None) /hpf Urine Mucus Occasional H (None) /hpf Thrombosis Risk Factor Assmnt - Choose All That Apply Each Factor Represents 1 point: Obesity (BMI >25) Other Risk Factors: Yes Each Risk Factor Represents 3 Points: Age 75 years or older, History of DVT/PE Thrombosis Risk Factor Assessment Total Risk Factor Score: 7 Thrombosis Risk Factor Assessment Level: High Risk
[2022-09-17] MEDS: traZODone HCL 50 MG TAB PO SCH (20:34)
[2022-09-18] MEDS: HYDROmorphone 1 MG/ML 1 ML SYRINGE IVP PRN ×4 (00:16→20:04)
[2022-09-18] MEDS: SODIUM CHLORIDE 0.9% 1,000 ML IV SCH ×4 (02:23→22:04)
[2022-09-18] MEDS: KETOROLAC 15 MG/ML 1 ML VIAL IVP PRN (04:25)
[2022-09-18 07:32] LABS: African American GFR (CKD) 35 (>60 ml/min/1.73 sqM); Anion Gap 7 mmol/L; Blood Urea Nitrogen 35 mg/dL (7-17); Calcium 7.4 mg/dL (8.4-10.2); Carbon Dioxide 22 mmol/L (22-30); Chloride 110 mmol/L (98-107); Glucose 118 mg/dL (74-99); Non-African American GFR(CKD) 30 (>60 ml/min/1.73 sqM); Potassium 4.6 mmol/L (3.5-5.1); Sodium 139 mmol/L (137-145)
[2022-09-18 07:40] LABS: HCT 38.7 % (34.0-46.0); HGB 12.3 gm/dL (11.4-16.0); MCHC 31.8 g/dL (31.0-37.0); MCV 94.4 fL (80.0-100.0); Mean Platelet Volume 8.7; Platelet Count 107 k/uL (150-450); RBC 4.09 m/uL (3.80-5.40); RDW 13.6 % (11.5-15.5)
[2022-09-18 07:57] LABS: WBC 52.4 k/uL (3.8-10.6)
[2022-09-18] MEDS: ENOXAPARIN 40 MG/0.4 ML SYRINGE SQ SCH (08:43)
[2022-09-18] MEDS: METOPROLOL SUCCINATE (ER) 50 MG TAB.ER.24H PO SCH (08:43)
[2022-09-18] MEDS: lamoTRIgine 100 MG TAB PO SCH (08:43)
[2022-09-18] MEDS: ALPRAZolam 0.25 MG TAB PO PRN (08:53)
[2022-09-18] MEDS ORDERED: ENOXAPARIN 30 MG/0.3 ML SYRINGE SQ SCH (09:00)
[2022-09-18] MEDS ORDERED: NON FORMULARY DRUG (Vitamin B Complex [Vitamin B Complex] 1 EACH Capsule) PO SCH (09:00)
[2022-09-18 11:07] LABS: Band Neutrophils % 15 %; Lymphocytes # (M) 0.52 k/uL (1.0-4.8); Metamyelocytes % 4 %; Myelocytes # (M) 0.52 k/uL (0); Myelocytes % 1 %; Neutrophils % (M) 77 %; Nucleated Red Blood Cells 0 /100 WBC (0-0); Total Cells Counted 200
--- NOTE | 2022-09-18 13:26 | P.PN ---
Subjective Progress Note Date: 09/18/22 underwent right stent insertion yesterday, hemodynamically stable. White count is elevated at 52 this am. Urine cultures growing gram-negative bacilli Objective - Vital Signs Vital signs: Vital Signs Temp 98.4 F 09/18/22 07:45 Pulse 79 09/18/22 07:45 Resp 19 09/18/22 07:45 BP 109/67 09/18/22 07:45 Pulse Ox 96 09/18/22 07:45 FiO2 Intake & Output 09/17/22 09/18/22 09/18/22 18:59 06:59 18:59 Intake Total 1100 Output Total 1 Balance 1099 Intake: IV 1100 Output: Estimated Blood Loss 1 Other: Voiding Method Toilet Toilet # Voids 0 - Constitutional General appearance: Present: no acute distress - Gastrointestinal General gastrointestinal: Present: soft. Absent: distended - Labs CBC & Chem 7: 09/18/22 06:42 09/18/22 06:42 Labs: Abnormal Lab Results - Last 24 Hours (Table) 09/18/22 09/18/22 Range/Units 06:42 06:42 WBC 52.4 H* (3.8-10.6) k/uL Plt Count 107 L (150-450) k/uL Neutrophils # (Manual) 48.20 H (1.3-7.7) k/uL Lymphocytes # (Manual) 0.52 L (1.0-4.8) k/uL Monocytes # (Manual) 2.10 H (0-1.0) k/uL Metamyelocytes # (Man) 2.10 H (0) k/uL Myelocytes # (Manual) 0.52 H (0) k/uL Chloride 110 H (98-107) mmol/L BUN 35 H (7-17) mg/dL Creatinine 1.66 H (0.52-1.04) mg/dL Glucose 118 H (74-99) mg/dL Calcium 7.4 L (8.4-10.2) mg/dL Microbiology - Last 24 Hours (Table) 09/16/22 23:20 Blood Culture - Preliminary Blood 09/16/22 23:05 Blood Culture - Preliminary Blood 09/16/22 22:20 Urine Culture - Preliminary Urine,Voided Gram Neg Bacilli Assessment and Plan Assessment: 77-year-old female, with history of a 1.2 cm right-sided proximal stone status post insertion inserted. The patient is septic at time of stent insertion. hemodynamically stable post stent insertion -Follow up on urine culture, recommend keeping in the hospital until leukocytosis improves and cultures finalized -We'll arrange for outpatient right ureteroscopy with holmium laser lithotripsy, stone basketing and stent removal
[2022-09-18] MEDS ORDERED: ARTIFICIAL TEARS-HYPROMELLOSE DROPS 15 ML BTL BOTH EYES PRN (14:14)
[2022-09-18] MEDS: traZODone HCL 50 MG TAB PO SCH (20:04)
--- NOTE | 2022-09-18 22:34 | P.PN ---
Progress Note - Text Progress Note Date: 09/18/22 Chief Complaint: Right flank pain This is a pleasant 77-year-old patient who follows Dr. Duncan. Chronic stable medical conditions include asthma, Taya arthritis, prior history of DVT. Apparently patient had a bleeding with blood tenderness.. And received a Eva filter. Patient's had previous kidney stones. Yesterday around 3:00 patient started off with progressively increasing right flank pain in the back. Significant nausea vomiting. Fevers. Urine color became orangeish. Tired rundown. Presented to ER. Received a dose of IV ceftriaxone in the ER. Patient this afternoon due to go down for surgery by Dr. woodall from urology. 09/18/2022: Patient underwent right stent placement yesterday. Sitting up in a chair. Flank pain better. No fever. Started to eat better. Patient does state that she is being followed by delivery rep for leukocytosis for years. Cause unclear. Also she gets ACTEMRA for temporal arteritis. Patient by: Is bumped up. Rising creatinine. Stop Toradol. Active Medications Albuterol/Ipratropium (Ipratropium-Albuterol 3 Ml Neb) 3 ml INHALATION RT-QID IVAN Alprazolam (Alprazolam 0.25 Mg Tab) 0.25 mg PO DAILY PRN PRN Reason: Anxiety Last Admin: 09/18/22 08:53 Dose: 0.25 mg Artificial Tears (Artificial Tears-Hypromellose Drops 15 Ml Btl) 1 drops BOTH EYES QID PRN PRN Reason: Dry Eye(s) Hydromorphone HCl (Hydromorphone 1 Mg/Ml 1 Ml Syringe) 1 mg IVP Q3HR PRN PRN Reason: Severe Pain (Scale 7 to 10) Last Admin: 09/18/22 20:04 Dose: 1 mg Sodium Chloride (Saline 0.9%) 1,000 mls @ 130 mls/hr IV .[id number] [facility] Last Admin: 09/18/22 22:04 Dose: 130 mls/hr Ceftriaxone Sodium 1 gm/ (Sodium Chloride) 50 mls @ 100 mls/hr IVPB Q12HR IVAN; Protocol Last Admin: 09/18/22 20:04 Dose: 100 mls/hr Lamotrigine (Lamotrigine 100 Mg Tab) 100 mg PO DAILY [facility] Last Admin: 09/18/22 08:43 Dose: 100 mg Metoprolol Succinate (Metoprolol Succinate (Er) 50 Mg Tab.Er.24h) 50 mg PO DAILY [facility] Last Admin: 09/18/22 08:43 Dose: 50 mg Naloxone HCl (Naloxone 0.4 Mg/Ml 1 Ml Vial) 0.2 mg IV Q2M PRN PRN Reason: Opioid Reversal Ondansetron HCl (Ondansetron 4 Mg/2 Ml Vial) 4 mg IVP Q8HR PRN PRN Reason: Nausea And Vomiting Last Admin: 09/17/22 05:03 Dose: 4 mg Prochlorperazine Edisylate (Prochlorperazine Inj 10 Mg/2 Ml Vial) 5 mg IVP Q8HR PRN PRN Reason: Nausea And Vomiting Last Admin: 09/17/22 06:45 Dose: 5 mg Trazodone HCl (Trazodone Hcl 50 Mg Tab) 50 mg PO HS [facility] Last Admin: 09/18/22 20:04 Dose: 50 mg Past medical history to include: Asthma, DVT and bleeding with anticoagulants, Eva filter, kidney stones, pancreatitis, osteoarthritis, bipolar Social history: . Alcohol occasionally. No smoking. Physical examination: VITAL SIGNS: 98, 76, 17, 102/69, 92% room air GENERAL: Up in a chair, declining, feeling better EYES: Pupils equal. Conjunctiva normal. HEENT: External appearance of nose and ears normal, oral cavity grossly normal. NECK: JVD not raised; masses not palpable. HEART: First and second heart sounds are normal; no edema. LUNGS: Respiratory rate normal; clear to auscultation. ABDOMEN: Soft, no renal angle tenderness, liver spleen not palpable, no masses palpable. PSYCH: Alert and oriented x3; mood and affect anxiousl. MUSCULOSKELETAL:No Clubbing/cyanosis;muscles-grossly intact. OA INVESTIGATIONS, reviewed in the clinical context: 09/18/2022: White count 52.4 hemoglobin 12.3 platelets 107 sodium 139 potassium 4.6 BUN 35 creatinine 1.66 White count 16.8 hemoglobin 14.3 platelets 200 sodium 137 potassium 3.5 BUN 18 creatinine 0.75 AST 39 in 2064 UA: Protein 2+, large leukoesterase, WBC greater than 182 CT abdomen pelvis: States stone within the proximal right ureter 1.3 x 0.4 cm causing moderate hydronephrosis. Hepatic steatosis. 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 Assessment and plan: -Acute right-sided, pyelonephritis secondary to right ureteral stone. Causing sepsis. Right stent placement per Dr. woodall on September 17. IV ceftriaxone. IV fluids. -Right proximal ureter 1.3 x 0.4 cm stone causing moderate hydronephrosis Right stent placement Dr. woodall -Acute on Chronic leukocytosis is being followed by delivery rep outpatient. Likely leukemoid reaction secondary to sepsis infection. Follow CBC -Acute kidney injury likely ATN from sepsis: New diagnosis IV fluids. Stop Toradol. Repeat labs. -Morbid obesity BMI 42.1 Weight loss measures -Primary osteoarthritis Pain medications as needed -Prior history of DVT with Eva filter -Bipolar disorder Lamictal. Desyrel. Xanax when necessary. -Essential hypertension Toprol-XL IV fluids. Follow renal function closely and CBC closely.
[2022-09-18] MEDS: IPRATROPIUM-ALBUTEROL 3 ML NEB INHALATION SCH (23:19)
[2022-09-19] MEDS: HYDROmorphone 1 MG/ML 1 ML SYRINGE IVP PRN ×2 (02:14→09:59)
[2022-09-19] MEDS: ONDANSETRON 4 MG/2 ML VIAL IVP PRN ×2 (02:15→07:34)
[2022-09-19] MEDS: SODIUM CHLORIDE 0.9% 1,000 ML IV SCH ×2 (06:01→15:30)
[2022-09-19 06:24] LABS: African American GFR (CKD) 69 (>60 ml/min/1.73 sqM); Anion Gap 5 mmol/L; Blood Urea Nitrogen 30 mg/dL (7-17); Calcium 7.9 mg/dL (8.4-10.2); Carbon Dioxide 23 mmol/L (22-30); Chloride 112 mmol/L (98-107); Glucose 89 mg/dL (74-99); Non-African American GFR(CKD) 60 (>60 ml/min/1.73 sqM); Potassium 4.1 mmol/L (3.5-5.1); Sodium 140 mmol/L (137-145)
[2022-09-19] MEDS: METOPROLOL SUCCINATE (ER) 50 MG TAB.ER.24H PO SCH (07:33)
[2022-09-19] MEDS: ACETAMINOPHEN TAB 500 MG TAB PO PRN ×2 (07:33→18:38)
[2022-09-19] MEDS: lamoTRIgine 100 MG TAB PO SCH (07:34)
[2022-09-19] MEDS: IPRATROPIUM-ALBUTEROL 3 ML NEB INHALATION SCH ×4 (08:00→20:02)
[2022-09-19] MEDS ORDERED: IPRATROPIUM-ALBUTEROL 3 ML NEB INHALATION SCH (08:00)
[2022-09-19] MEDS: ALPRAZolam 0.25 MG TAB PO PRN (08:48)
[2022-09-19 10:17] LABS: HCT 39.2 % (37.2-46.3); HGB 12.2 d/dL (12.0-15.0); MCH 29.5 pg (27.0-32.0); MCHC 31.1 d/dL (32.0-37.0); MCV 94.9 FL (80.0-97.0); NRBC Per 100 WBC 0 X 10*3/uL (0.00-0.01); Platelet Count 108 X 10*3/uL (140-440); RBC 4.13 X 10*6/uL (4.10-5.20); RDW 13.8 % (11.5-14.5); WBC 36.39 X 10*3/uL (4.50-10.00)
[2022-09-19 11:05] LABS: Basophils # (A) 0.16 X 10*3/uL (0.00-0.10); Basophils % (A) 0.4 %; Eosinophils # (A) 0.84 X 10*3/uL (0.04-0.35); Eosinophils % (A) 2.3 %; Monocytes # (A) 1.24 X 10*3/uL (0.20-1.00); Monocytes % (A) 3.4 %; Neutrophils % (A) 83.1 %; RBC Morphology Normal (Normal)
[2022-09-19] MEDS ORDERED: FUROSEMIDE 10 MG/ML 4 ML VIAL IV STA (11:44)
--- NOTE | 2022-09-19 13:51 | P.CONS ---
History of Present Illness - Reason for Consult Consult date: 09/19/22 abdnormal cbc Requesting physician: Eduardo Linares - Chief Complaint flank pain - History of Present Illness Patient is a 77-year-old female with a significant history of temporal arteritis and leukocytosis. We were consulted for abnormal CBC. Patient presented to the emergency room with complaints of right flank pain, fever and chills, and dysuria and hematuria. On admission CT abdomen and pelvis revealed stone within the right proximal ureter measuring 1.3 x 0.4 cm with moderate hydronephrosis. Urology was consulted and stent was placed within the right ureter. CBC initially revealed WBC of 16.8 and then 52.4 with elevated neutrophils metamyelocytes, myelocytes and monocytes. WBC improved today at 36.3. Hemoglobin 12.2 platelets 108,000. Patient reports that she has been worked up by hematology Dr. Khan at [facility] in the past. She reports she had a bone marrow biopsy 6 months ago which was negative. She also had a PET scan at that time which was negative. Patient reports she's had noted leukocytosis for years. Patient reports improvement in symptoms today, c/o mild right flank discomfort. T max 100.0. Patient is currently afebrile. Review of Systems 10 point ROS is negative except as stated in the HPI Past Medical History Past Medical History: Asthma, Deep Vein Thrombosis (DVT), Osteoarthritis (OA) Additional Past Medical History / Comment(s): Hx pancreatitis, DVT, kidney stones, History of Any Multi-Drug Resistant Organisms: None Reported Past Surgical History: Hysterectomy, Joint Replacement, Orthopedic Surgery Additional Past Surgical History / Comment(s): Right knee replacement, cystocele, rectocele, Rt shoulder rotator cuff Past Anesthesia/Blood Transfusion Reactions: Family History of Problems w/ Anesthesia, Postoperative Nausea & Vomiting (PONV) Additional Past Anesthesia/Blood Transfusion Reaction / Comm: Mother has PONV Past Psychological History: Anxiety, Bipolar Smoking Status: Never smoker Past Alcohol Use History: Occasional Past Drug Use History: None Reported - Past Family History Brother(s) Family Medical History: Cancer Additional Family Medical History / Comment(s): throat, lung cancer Medications and Allergies Home Medications Medication Instructions Recorded Confirmed Type ALPRAZolam [Xanax] 0.25 mg PO DAILY PRN 03/26/20 09/17/22 History Furosemide [Lasix] 20 mg PO DAILY 09/17/22 09/17/22 History Metoprolol Succinate (ER) [Toprol 50 mg PO DAILY 09/17/22 09/17/22 History Xl] Vitamin B Complex 1 cap PO DAILY 09/17/22 09/17/22 History Vitamin D3(Unknown Dose) 1 tab PO DAILY 09/17/22 09/17/22 History lamoTRIgine [LaMICtal] 100 mg PO DAILY 09/17/22 09/17/22 History traZODone HCL [Desyrel] 50 mg PO HS 09/17/22 09/17/22 History Allergies Allergy/AdvReac Type Severity Reaction Status Date / Time codeine Allergy Rash/Hives Verified 09/17/22 09:38 Physical Exam Vitals: Vital Signs Temp Pulse Pulse Resp BP Pulse Ox 09/19/22 11:48 78 09/19/22 11:38 78 09/19/22 08:07 76 09/19/22 07:54 76 96 09/19/22 07:05 98.1 F 76 20 162/85 96 09/19/22 02:00 98.3 F 83 19 152/65 91 L 09/19/22 01:58 84 L 09/18/22 23:28 84 09/18/22 23:21 84 09/18/22 19:54 98.0 F 84 19 165/73 90 L Intake and Output 09/18/22 09/19/22 09/19/22 22:59 06:59 14:59 Intake Total 1080 Balance 1080 Intake: Oral 1080 Other: Voiding Method Toilet Toilet # Voids 3 2 1 - Constitutional General appearance: no acute distress, obese - EENT Eyes: anicteric sclerae, EOMI ENT: hearing grossly normal - Respiratory Respiratory: bilateral: CTA - Cardiovascular Rhythm: regular Heart sounds: normal: S1, S2 Abnormal Heart Sounds: no systolic murmur, no diastolic murmur, no rub, no S3 Gallop, no S4 Gallop, no click, no other - Gastrointestinal General gastrointestinal: soft, no tenderness - Integumentary Integumentary: no cyanotic, no jaundiced - Neurologic grossly intact - Musculoskeletal Musculoskeletal: strength equal bilaterally - Psychiatric Psychiatric: A&O x's 3, appropriate affect, intact judgment & insight Results CBC & Chem 7: 09/19/22 05:44 09/19/22 05:44 Labs: Abnormal Lab Results - Last 24 Hours (Table) 09/19/22 09/19/22 Range/Units 05:44 05:44 WBC 36.39 H (4.50-10.00) X 10*3/uL MCHC 31.1 L (32.0-37.0) d/dL Plt Count 108 L (140-440) X 10*3/uL Neutrophils # 30.20 H (1.80-7.70) X 10*3/uL Monocytes # 1.24 H (0.20-1.00) X 10*3/uL Eosinophils # 0.84 H (0.04-0.35) X 10*3/uL Basophils # 0.16 H (0.00-0.10) X 10*3/uL Chloride 112 H (98-107) mmol/L BUN 30 H (7-17) mg/dL Calcium 7.9 L (8.4-10.2) mg/dL Microbiology - Last 24 Hours (Table) 09/16/22 23:20 Blood Culture - Preliminary Blood 09/16/22 23:05 Blood Culture - Preliminary Blood CT scan - abdomen: report reviewed CT scan - pelvis: report reviewed Assessment and Plan (1) Leukemoid reaction Current Visit: Yes Status: Acute Priority: Medium Code(s): D72.823 - LEUKEMOID REACTION SNOMED Code(s): 84042422 (2) Hydronephrosis Current Visit: Yes Status: Acute Priority: High Code(s): N13.30 - UNSPECIFIED HYDRONEPHROSIS SNOMED Code(s): 83491607 (3) Kidney stone Current Visit: Yes Status: Acute Priority: High Code(s): N20.0 - CALCULUS OF KIDNEY SNOMED Code(s): 27236235 Plan: Leukemoid reaction: - CBC initially revealed WBC of 16.8 and then 52.4 with elevated neutrophils metamyelocytes, myelocytes and monocytes. WBC improved today at 36.3. -Patient reports that she has been worked up by hematology Dr. Khan at [facility] in the past. She reports she had a bone marrow biopsy 6 months ago which was negative. She also had a PET scan at that time which was negative. Patient reports she's had noted leukocytosis for years. -Given current pyleonephritis and recent negative bone marrow this is likely leukemoid reaction and would expect counts to improve as patient acutely recovers. Recommended patient to follow up with her radiographic technologist in the next 3 weeks to have a repeat CBC to recheck counts. Patient agreeable Hydronephosis: -CT abdomen and pelvis revealed stone within the right proximal ureter measuring 1.3 x 0.4 cm with moderate hydronephrosis. Urology was consulted and stent was placed within the right ureter. -Continues on IV abx -Defer to urology for management
--- NOTE | 2022-09-19 16:49 | P.PN ---
Progress Note - Text Progress Note Date: 09/19/22 Chief Complaint: Right flank pain This is a pleasant 77-year-old patient who follows Dr. Duncan. Chronic stable medical conditions include asthma, Taya arthritis, prior history of DVT. Apparently patient had a bleeding with blood tenderness.. And received a Eva filter. Patient's had previous kidney stones. Yesterday around 3:00 patient started off with progressively increasing right flank pain in the back. Significant nausea vomiting. Fevers. Urine color became orangeish. Tired rundown. Presented to ER. Received a dose of IV ceftriaxone in the ER. Patient this afternoon due to go down for surgery by Dr. woodall from urology. 09/18/2022: Patient underwent right stent placement yesterday. Sitting up in a chair. Flank pain better. No fever. Started to eat better. Patient does state that she is being followed by ad terminal makeup operator for leukocytosis for years. Cause unclear. Also she gets ACTEMRA for temporal arteritis. Patient by: Is bumped up. Rising creatinine. Stop Toradol. 09/19/2022: Patient became a bit short of breath. Some swelling of the extremity. IV fluids cutback. 1 dose of IV Lasix 40 mg given. On IV ceftriaxone. Active Medications Acetaminophen (Acetaminophen Tab 500 Mg Tab) 500 mg PO Q6HR PRN PRN Reason: Fever and/ or Pain Last Admin: 09/19/22 07:33 Dose: 500 mg Albuterol/Ipratropium (Ipratropium-Albuterol 3 Ml Neb) 3 ml INHALATION RT-QID IVAN Last Admin: 09/19/22 15:12 Dose: 3 ml Alprazolam (Alprazolam 0.25 Mg Tab) 0.25 mg PO DAILY PRN PRN Reason: Anxiety Last Admin: 09/19/22 08:48 Dose: 0.25 mg Artificial Tears (Artificial Tears-Hypromellose Drops 15 Ml Btl) 1 drops BOTH EYES QID PRN PRN Reason: Dry Eye(s) Sodium Chloride (Saline 0.9%) 1,000 mls @ 50 mls/hr IV .Q20H IVAN Last Admin: 09/19/22 15:30 Dose: 50 mls/hr Ceftriaxone Sodium 1 gm/ (Sodium Chloride) 50 mls @ 100 mls/hr IVPB Q12HR IVAN; Protocol Last Admin: 09/19/22 07:34 Dose: 100 mls/hr Lamotrigine (Lamotrigine 100 Mg Tab) 100 mg PO DAILY [facility] Last Admin: 09/19/22 07:34 Dose: 100 mg Metoprolol Succinate (Metoprolol Succinate (Er) 50 Mg Tab.Er.24h) 50 mg PO DAILY [facility] Last Admin: 09/19/22 07:33 Dose: 50 mg Naloxone HCl (Naloxone 0.4 Mg/Ml 1 Ml Vial) 0.2 mg IV Q2M PRN PRN Reason: Opioid Reversal Ondansetron HCl (Ondansetron 4 Mg/2 Ml Vial) 4 mg IVP Q8HR PRN PRN Reason: Nausea And Vomiting Last Admin: 09/19/22 07:34 Dose: 4 mg Prochlorperazine Edisylate (Prochlorperazine Inj 10 Mg/2 Ml Vial) 5 mg IVP Q8HR PRN PRN Reason: Nausea And Vomiting Last Admin: 09/17/22 06:45 Dose: 5 mg Trazodone HCl (Trazodone Hcl 50 Mg Tab) 50 mg PO HS [facility] Last Admin: 09/18/22 20:04 Dose: 50 mg Past medical history to include: Asthma, DVT and bleeding with anticoagulants, Eva filter, kidney stones, pancreatitis, osteoarthritis, bipolar Social history: . Alcohol occasionally. No smoking. Physical examination: VITAL SIGNS: 98, 61, 18, 92/54, 95% room air GENERAL: Up in a chair, slightly short of breath EYES: Pupils equal. Conjunctiva normal. HEENT: External appearance of nose and ears normal, oral cavity grossly normal. NECK: JVD raised; masses not palpable. HEART: First and second heart sounds are normal; some edema. LUNGS: Respiratory rate increased; right basal crackles ABDOMEN: Soft, no renal angle tenderness, liver spleen not palpable, no masses palpable. PSYCH: Alert and oriented x3; mood and affect anxiousl. MUSCULOSKELETAL:No Clubbing/cyanosis;muscles-grossly intact. OA INVESTIGATIONS, reviewed in the clinical context: Urine culture: Gram-negative bacilli 09/19/2022: White count 36.3 hemoglobin 12.2 platelets 108 potassium 4.1 BUN 30 creatinine 0.94 09/18/2022: White count 52.4 hemoglobin 12.3 platelets 107 sodium 139 potassium 4.6 BUN 35 creatinine 1.66 White count 16.8 hemoglobin 14.3 platelets 200 sodium 137 potassium 3.5 BUN 18 creatinine 0.75 AST 39 in 2064 UA: Protein 2+, large leukoesterase, WBC greater than 182 CT abdomen pelvis: States stone within the proximal right ureter 1.3 x 0.4 cm causing moderate hydronephrosis. Hepatic steatosis. 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 Assessment and plan: -Acute right-sided, pyelonephritis secondary to right ureteral stone. Causing sepsis. Urine culture growing gram-negative bacilli. Right stent placement per Dr. woodall on September 17. IV ceftriaxone. -Acute pulmonary edema from IV fluids. Cutback IV fluids to 50 mL an hour. 1 dose of IV Lasix 40 mg. -Right proximal ureter 1.3 x 0.4 cm stone causing moderate hydronephrosis Right stent placement Dr. woodall -Acute on Chronic leukocytosis is being followed by ad terminal makeup operator outpatient. Likely leukemoid reaction secondary to sepsis infection.: Started to come down Follow CBC -Acute kidney injury likely ATN from sepsis: Better IV fluids. -Morbid obesity BMI 42.1 Weight loss measures -Primary osteoarthritis Pain medications as needed -Prior history of DVT with [place] filter -Bipolar disorder Lamictal. Desyrel. Xanax when necessary. -Essential hypertension Toprol-XL Cutback IV fluids. IV Lasix. Follow labs. Discussed with patient.
[2022-09-19] MEDS: traZODone HCL 50 MG TAB PO SCH (21:01)
[2022-09-20] MEDS: ACETAMINOPHEN TAB 500 MG TAB PO PRN ×3 (00:38→23:45)
[2022-09-20] MEDS: IPRATROPIUM-ALBUTEROL 3 ML NEB INHALATION SCH ×2 (08:27→19:45)
[2022-09-20] MEDS: METOPROLOL SUCCINATE (ER) 50 MG TAB.ER.24H PO SCH (08:41)
[2022-09-20] MEDS: lamoTRIgine 100 MG TAB PO SCH (08:41)
[2022-09-20 10:39] LABS: African American GFR (CKD) >90 (>60 ml/min/1.73 sqM); Anion Gap 6 mmol/L; Blood Urea Nitrogen 19 mg/dL (7-17); Calcium 8.7 mg/dL (8.4-10.2); Carbon Dioxide 27 mmol/L (22-30); Chloride 109 mmol/L (98-107); Glucose 97 mg/dL (74-99); Non-African American GFR(CKD) 86 (>60 ml/min/1.73 sqM); Potassium 3.7 mmol/L (3.5-5.1); Sodium 142 mmol/L (137-145)
--- NOTE | 2022-09-20 12:31 | XR ---
EXAMINATION TYPE: XR chest 2V DATE OF EXAM: 09/20/2022 COMPARISON: 12/17/2012 HISTORY: Shortness of breath TECHNIQUE: Frontal and lateral views of the chest are obtained. FINDINGS: Scattered senescent parenchymal changes noted. Hyperinflation compatible with COPD. No evidence for infiltrate. No evidence for atelectasis. Vascular crowding right medial lung base. Heart size is stable. Mediastinal structures are stable and grossly unremarkable. No evidence for hilar prominence. Degenerative changes dorsal spine. IMPRESSION: 1. No evidence for acute pulmonary disease.
--- NOTE | 2022-09-20 14:31 | P.PN ---
Progress Note - Text Progress Note Date: 09/20/22 Hospital course: This is a pleasant 77-year-old patient who follows Dr. Duncan. Chronic stable medical conditions include asthma, Taya arthritis, prior history of DVT. Apparently patient had a bleeding with blood tenderness.. And received a Eva filter. Patient's had previous kidney stones. Yesterday around 3:00 patient started off with progressively increasing right flank pain in the back. Significant nausea vomiting. Fevers. Urine color became orangeish. Tired rundown. Presented to ER. Received a dose of IV ceftriaxone in the ER. Patient this afternoon due to go down for surgery by Dr. woodall from urology. 09/18/2022: Patient underwent right stent placement yesterday. Sitting up in a chair. Flank pain better. No fever. Started to eat better. Patient does state that she is being followed by parts washer for leukocytosis for years. C ause unclear. Also she gets ACTEMRA for temporal arteritis. Patient by: Is bumped up. Rising creatinine. Stop Toradol. 09/19/2022: Patient became a bit short of breath. Some swelling of the extre mity. IV fluids cutback. 1 dose of IV Lasix 40 mg given. On IV ceftriaxone. 09/20/2022: Breathing stable. Has some pharyngeal cough. Told her to warm water salt gargle. Avoid iced and cold liquids. Urine culture growing gram- negative bacilli, results pending. Increase activity. Eating about 50%. Active Medications Acetaminophen (Acetaminophen Tab 500 Mg Tab) 500 mg PO Q6HR PRN PRN Reason: Fever and/ or Pain Last Admin: 09/20/22 00:38 Dose: 500 mg Albuterol/Ipratropium (Ipratropium-Albuterol 3 Ml Neb) 3 ml INHALATION BID IVAN Last Admin: 09/20/22 08:27 Dose: 3 ml Alprazolam (Alprazolam 0.25 Mg Tab) 0.25 mg PO DAILY PRN PRN Reason: Anxiety Last Admin: 09/19/22 08:48 Dose: 0.25 mg Artificial Tears (Artificial Tears-Hypromellose Drops 15 Ml Btl) 1 drops BOTH EYES QID PRN PRN Reason: Dry Eye(s) Sodium Chloride (Saline 0.9%) 1,000 mls @ 50 mls/hr IV .Q20H IVAN Last Admin: 09/19/22 15:30 Dose: 50 mls/hr Ceftriaxone Sodium 1 gm/ (Sodium Chloride) 50 mls @ 100 mls/hr IVPB Q12HR [facility]; Protocol Last Admin: 09/20/22 08:41 Dose: 100 mls/hr Lamotrigine (Lamotrigine 100 Mg Tab) 100 mg PO DAILY [facility] Last Admin: 09/20/22 08:41 Dose: 100 mg Metoprolol Succinate (Metoprolol Succinate (Er) 50 Mg Tab.Er.24h) 50 mg PO DAILY [facility] Last Admin: 09/20/22 08:41 Dose: 50 mg Naloxone HCl (Naloxone 0.4 Mg/Ml 1 Ml Vial) 0.2 mg IV Q2M PRN PRN Reason: Opioid Reversal Ondansetron HCl (Ondansetron 4 Mg/2 Ml Vial) 4 mg IVP Q8HR PRN PRN Reason: Nausea And Vomiting Last Admin: 09/19/22 07:34 Dose: 4 mg Prochlorperazine Edisylate (Prochlorperazine Inj 10 Mg/2 Ml Vial) 5 mg IVP Q8HR PRN PRN Reason: Nausea And Vomiting Last Admin: 09/17/22 06:45 Dose: 5 mg Trazodone HCl (Trazodone Hcl 50 Mg Tab) 50 mg PO HS [facility] Last Admin: 09/19/22 21:01 Dose: 50 mg Past medical history to include: Asthma, DVT and bleeding with anticoagulants, [place] filter, kidney stones, pancreatitis, osteoarthritis, bipolar Social history: . Alcohol occasionally. No smoking. Physical examination: VITAL SIGNS: 98.5, 69, 18, 149/82, 93% room air GENERAL: Up in a chair, breathing better EYES: Pupils equal. Conjunctiva normal. HEENT: External appearance of nose and ears normal, oral cavity grossly normal. NECK: JVD raised; masses not palpable. HEART: First and second heart sounds are normal; some edema. LUNGS: Respiratory rate increased; right basal crackles ABDOMEN: Soft, no renal angle tenderness, liver spleen not palpable, no masses palpable. PSYCH: Alert and oriented x3; mood and affect anxiousl. MUSCULOSKELETAL:No Clubbing/cyanosis;muscles-grossly intact. OA INVESTIGATIONS, reviewed in the clinical context: 09/20/2022: Potassium 3.7 creatinine 0.69 Urine culture: Gram-negative bacilli 09/19/2022: White count 36.3 hemoglobin 12.2 platelets 108 potassium 4.1 BUN 30 creatinine 0.94 09/18/2022: White count 52.4 hemoglobin 12.3 platelets 107 sodium 139 potassium 4.6 BUN 35 creatinine 1.66 White count 16.8 hemoglobin 14.3 platelets 200 sodium 137 potassium 3.5 BUN 18 creatinine 0.75 AST 39 in 2064 UA: Protein 2+, large leukoesterase, WBC greater than 182 CT abdomen pelvis: States stone within the proximal right ureter 1.3 x 0.4 cm causing moderate hydronephrosis. Hepatic steatosis. 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 Assessment and plan: -Acute right-sided, pyelonephritis secondary to right ureteral stone. Causing sepsis. Urine culture growing gram-negative bacilli. Right stent placement per Dr. woodall on September 17. IV ceftriaxone. -Acute pharyngitis likely viral -Acute pulmonary edema from IV fluids. Cutback IV fluids to 50 mL an hour. 1 dose of IV Lasix 40 mg. -Right proximal ureter 1.3 x 0.4 cm stone causing moderate hydronephrosis Right stent placement Dr. woodall -Acute on Chronic leukocytosis is being followed by parts washer outpatient. Likely leukemoid reaction secondary to sepsis infection.: Started to come down Follow CBC -Acute kidney injury likely ATN from sepsis: Better IV fluids. -Morbid obesity BMI 42.1 Weight loss measures -Primary osteoarthritis Pain medications as needed -Prior history of DVT with [place] filter -Bipolar disorder Lamictal. Desyrel. Xanax when necessary. -Essential hypertension Toprol-XL Continue current treatment plan. If urine culture back patient can hopefully be discharged tomorrow. Discussed with patient.
[2022-09-20] MEDS: SODIUM CHLORIDE 0.9% 1,000 ML IV SCH (15:32)
[2022-09-20] MEDS: traZODone HCL 50 MG TAB PO SCH (20:10)
[2022-09-21 07:14] LABS: Basophils # (A) 0.1 k/uL (0-0.2); Basophils % (A) 1 %; Eosinophils # (A) 0.6 k/uL (0-0.7); Eosinophils % (A) 6 %; HCT 41.2 % (34.0-46.0); Lymphocytes # (A) 2.2 k/uL (1.0-4.8); Lymphocytes % (A) 24 %; MCH 30.8 pg (25.0-35.0); MCHC 33.9 g/dL (31.0-37.0); MCV 90.8 fL (80.0-100.0); Mean Platelet Volume 8.2; Monocytes # (A) 0.4 k/uL (0-1.0); Monocytes % (A) 5 %; Neutrophils # (A) 5.5 k/uL (1.3-7.7); Neutrophils % (A) 62 %; Platelet Count 102 k/uL (150-450); RBC 4.54 m/uL (3.80-5.40); RDW 13.2 % (11.5-15.5); WBC 8.9 k/uL (3.8-10.6)
[2022-09-21] MEDS: ACETAMINOPHEN TAB 500 MG TAB PO PRN (08:10)
[2022-09-21] MEDS: METOPROLOL SUCCINATE (ER) 50 MG TAB.ER.24H PO SCH (08:11)
[2022-09-21] MEDS: lamoTRIgine 100 MG TAB PO SCH (08:11)
[2022-09-21] MEDS: IPRATROPIUM-ALBUTEROL 3 ML NEB INHALATION SCH (08:27)
[2022-09-21] MEDS: ONDANSETRON 4 MG/2 ML VIAL IVP PRN (09:29)
[2022-09-21 15:31] VITALS: BP 158/78; PULSE 74; RESP 20; TEMP 98.1
--- NOTE | 2022-09-21 16:08 | P.PN ---
Subjective Progress Note Date: 09/21/22 Principal diagnosis: Leukocytosis In follow-up today patient is reporting some nausea from antibiotics she is receiving, anti-emetics do help though. She denies fever, shortness of breath, urinary symptoms. Objective - Vital Signs Vital signs: Vital Signs Temp 98.1 F 09/21/22 13:23 Pulse 74 09/21/22 13:23 Resp 20 09/21/22 13:23 BP 158/78 09/21/22 13:23 Pulse Ox 92 L 09/21/22 13:23 FiO2 21 09/20/22 08:27 Intake & Output 09/20/22 09/21/22 09/21/22 18:59 06:59 18:59 Other: Voiding Method Toilet Toilet Toilet # Voids 1 3 - Constitutional General appearance: Present: average body habitus, cooperative, no acute di stress - EENT Eyes: Present: anicteric sclerae, EOMI ENT: Present: hearing grossly normal - Respiratory Details: Respirations even and unlabored at rest - Cardiovascular Details: skin warm and dry to the touch - Neurologic Neurologic: Present: CNII-XII intact (Grossly) - Musculoskeletal Musculoskeletal: Present: strength equal bilaterally - Psychiatric Psychiatric: Present: A&O x's 3, appropriate affect, intact judgment & insight - Labs CBC & Chem 7: 09/21/22 06:55 09/20/22 08:43 Labs: Abnormal Lab Results - Last 24 Hours (Table) 09/21/22 Range/Units 06:55 Plt Count 102 L (150-450) k/uL Microbiology - Last 24 Hours (Table) 09/16/22 22:20 Urine Culture - Final Urine,Voided Proteus mirabilis 09/16/22 23:20 Blood Culture - Preliminary Blood 09/16/22 23:05 Blood Culture - Preliminary Blood Assessment and Plan (1) Leukemoid reaction Current Visit: Yes Status: Acute Priority: Medium Code(s): D72.823 - LEUKEMOID REACTION SNOMED Code(s): 58168871 Plan: Leukemoid reaction -Significant increase in WBC on admit. Secondary to acute infection -Admitted with kidney stone and UTI -Treated for the same, on antibiotics -History of elevated WBC, she reports baseline WBC or her is 12-18 range-WBC is normal today -Follows with a Heddler in [place]. She has had bone marrow biopsy, no pathology. She is monitored -Patient will continue to follow up as ordered by her Heddler -Nothing acutely from Hematology at this time. Patient is okay for discharge from Hematology standpoint once cleared with Internal Medicine and consulted Physicians
--- NOTE | 2022-09-21 23:37 | P.DS ---
Providers Date of admission: 09/16/22 23:23 Attending physician: Eduardo Linares Consults: 09/16/22 23:20 Consult Physician Urgent Consulting Provider: Hardeep Acosta Consult Reason/Comments: septic stone Do you want consulting provider notified?: Already Contacted 09/18/22 22:35 Consult Physician Routine Consulting Provider: Chaz Cuevas Consult Reason/Comments: Abnormal CBC Do you want consulting provider notified?: Yes Primary care physician: Lj Duncan [place] Hospital Course: Hospital course: This is a pleasant 77-year-old patient who follows Dr. Duncan. Chronic stable medical conditions include asthma, Taya arthritis, prior history of DVT. Apparently patient had a bleeding with blood tenderness.. And received a [place] filter. Patient's had previous kidney stones. Patient presents because of right flank pain found to have UTI with right pyelonephritis related to right ureteral stone and status post stent placement by Dr. acosta on 09/17. IV antibiotics with ceftriaxone and her urine culture growing sensitive Proteus Her leukocytosis was significantly elevated up to 52,000 and he was evaluated by roof slater team found to have leukomoid reaction, with the treatment WBC back to normal at 8.9. Urologist cleared the Patient for discharge once urine culture is back and leukocytosis resolved which is with happened today. Patient herself was sitting, relaxed comfortable, denies any symptoms, no dysuria or urgency, her right flank pain significantly improved No nausea vomiting and patient tolerates diet well. Patient was cleared for discharge by urologist Problems and management plan were discussed with the patient and he verbalized understanding and acceptance Patient was found stable and can be discharged home in guarded prognosis however he needs follow-up as an outpatient. Patient was instructed to follow up with PCP Dr. Duncan within one week and patient agrees Patient was instructed to follow-up with urologist Dr. acosta recommended outpatient stone and stent removal within 1 week and patient verbalized understanding and agreed to follow-up. Staff tried to call the office and they were informed that we'll contact the patient directly. Physical exam Gen: patient is a AAOx3, no distress CVS: S1-S2, RRR, no murmur Lungs: B/L CTA, no wheezing Abdomen: soft, no distention, no tenderness, positive bowel sounds Extremity: no leg edema or induration Time spent more than 35 minutes Patient Condition at Discharge: Fair Plan - Discharge Summary Discharge Rx Participant: No New Discharge Prescriptions: New Prochlorperazine [Compazine] 5 mg PO Q6HR PRN 2 Days #8 tab PRN Reason: Nausea And Vomiting cefUROXime axetiL [Ceftin] 500 mg PO BID 7 Days #14 tab Continue ALPRAZolam [Xanax] 0.25 mg PO DAILY PRN PRN Reason: Anxiety Vitamin D3(Unknown Dose) 1 tab PO DAILY lamoTRIgine [LaMICtal] 100 mg PO DAILY Metoprolol Succinate (ER) [Toprol XL] 50 mg PO DAILY Furosemide [Lasix] 20 mg PO DAILY traZODone HCL [Desyrel] 50 mg PO HS Vitamin B Complex 1 cap PO DAILY Discharge Medication List ALPRAZolam [Xanax] 0.25 mg PO DAILY PRN 03/26/20 [History] Furosemide [Lasix] 20 mg PO DAILY 09/17/22 [History] Metoprolol Succinate (ER) [Toprol XL] 50 mg PO DAILY 09/17/22 [History] Vitamin B Complex 1 cap PO DAILY 09/17/22 [History] Vitamin D3(Unknown Dose) 1 tab PO DAILY 09/17/22 [History] lamoTRIgine [LaMICtal] 100 mg PO DAILY 09/17/22 [History] traZODone HCL [Desyrel] 50 mg PO HS 09/17/22 [History] Prochlorperazine [Compazine] 5 mg PO Q6HR PRN 2 Days #8 tab 09/21/22 [Rx] cefUROXime axetiL [Ceftin] 500 mg PO BID 7 Days #14 tab 09/21/22 [Rx] Follow up Appointment(s)/Referral(s): Chaz Cuevas [STAFF PHYSICIAN] - 2 Weeks (or follow up with your roof slater dr. Harry in 3 week (you have the contact info )) Lj Duncan DO [Primary Care Provider] - 1-2 days (Office stated they would put patient on cancelation list. Office will call with appointment time and date.) Hardeep Acosta MD [STAFF PHYSICIAN] - 1 Week (Office stated they will pull new p atient records and call patient for follow-up appointment.) Activity/Diet/Wound Care/Special Instructions: Heart healthy diet activity is restricted till you see your doctor we recommend outpatient right ureteroscopy with holmium laser lithotripsy, stone basketing and stent removal ( with urologist , within one week ) Discharge Disposition: HOME SELF-CARE
--- NOTE | 2022-09-24 07:46 | P.OP ---
Date of Procedure: 09/17/22 Preoperative Diagnosis: Ureteral stone Postoperative Diagnosis: Same Procedure(s) Performed: Cystoscopy, right ureteral stent insertion Implants: 6-[place] by 24 cm stent in the right ureter Anesthesia: MIKEY Surgeon: Hardeep Acosta Estimated Blood Loss (ml): 1 Pathology: none sent Condition: stable Disposition: PACU Indications for Procedure: This is 77-year-old female history of a 1.3 cm right proximal ureteral stone. Patient is septic secondary to her stone. Discussed with her given this finding I recommend proceeding stent insertion. Risk-benefit and rationale were discussed in detail Description of Procedure: Patient brought to the operating room, general anesthesia was induced. She was prepped and draped in sterile fashion and placed in dorsal lithotomy position. Cystoscopy fitted with 21-[place] sheath was inserted per urethra, cystoscopy was performed which showed no abnormality within the bladder. Attention was then carried to the right ureteral orifice which was intubated with a sensor wire. Next a ureteral stent was passed over the wire, the proximal curl was visualized on fluoroscopy and the distal curl was visualized using cystoscope. Cloudy urine was drained from the stent. Patient tolerated procedure well was taken to recovery in stable condition
== END 2022-09-21 17:03 | disposition home or self-care (01) | DRG 853 ==
LOC: EC 20:06 → 4SSUR 23:23
PROVIDERS: ADMIT Hospitalist; ATTEND Hospitalist
PROC: 0T768DZ Dilation of Right Ureter with Intraluminal Device, Via Natural or Artificial Opening Endoscopic (ICD-10-PCS; principal; 2022-09-17 08:20)
DX: A41.9 Sepsis, unspecified organism (principal); J81.0 Acute pulmonary edema; N17.0 Acute kidney failure with tubular necrosis; N13.6 Pyonephrosis; Z68.41 Body mass index [BMI] 40.0-44.9, adult; C92.00 Acute myeloblastic leukemia, not having achieved remission; N20.2 Calculus of kidney with calculus of ureter; R65.20 Severe sepsis without septic shock; M31.6 Other giant cell arteritis; K76.0 Fatty (change of) liver, not elsewhere classified; E66.01 Morbid (severe) obesity due to excess calories; F31.9 Bipolar disorder, unspecified; I10 Essential (primary) hypertension; Z86.718 Personal history of other venous thrombosis and embolism; M19.90 Unspecified osteoarthritis, unspecified site; F41.9 Anxiety disorder, unspecified; Z87.442 Personal history of urinary calculi; Z96.651 Presence of right artificial knee joint; Z79.01 Long term (current) use of anticoagulants; Z79.52 Long term (current) use of systemic steroids; Z87.440 Personal history of urinary (tract) infections; Z90.710 Acquired absence of both cervix and uterus; Z66 Do not resuscitate; Z95.828 Presence of other vascular implants and grafts
CPT/HCPCS: 36415; 71046; 74176; 80048; 80053; 81001; 83605; 85025; 87040; 87077; 87086; 87186; 94640; 94760; 96361; 96374; 96375; 99285

== ENCOUNTER → 2022-09-29 | Outpatient (CLI) | payer MEDICARE ==
[2022-09-29 15:32] LABS: Basophils # (A) 0.07 X 10*3/uL (0.00-0.10); Basophils % (A) 0.8 %; Eosinophils # (A) 0.36 X 10*3/uL (0.04-0.35); Eosinophils % (A) 4.3 %; HCT 44.5 % (37.2-46.3); HGB 14.4 d/dL (12.0-15.0); Lymphocytes % (A) 27.6 %; MCH 30.1 pg (27.0-32.0); MCHC 32.4 d/dL (32.0-37.0); MCV 93.1 FL (80.0-97.0); Mean Platelet Volume 11.4 FL (9.5-12.2); Monocytes # (A) 0.62 X 10*3/uL (0.20-1.00); Monocytes % (A) 7.5 %; NRBC Per 100 WBC 0 X 10*3/uL (0.00-0.01); Neutrophils # (A) 4.95 X 10*3/uL (1.80-7.70); Neutrophils % (A) 59.6 %; Platelet Count 223 X 10*3/uL (140-440); RBC 4.78 X 10*6/uL (4.10-5.20); RDW 13.2 % (11.5-14.5); WBC 8.32 X 10*3/uL (4.50-10.00)
[2022-09-29 15:48] LABS: Carbon Dioxide 25.8 mmol/L (21.6-31.8); Chloride 108 mmol/L (96-109); Glucose 99 mg/dL (70-110); Potassium 4.8 mmol/L (3.5-5.5); Sodium 144 mmol/L (135-145)
== END | disposition home or self-care (01) ==
LOC: LABPAT 10:33
PROVIDERS: ATTEND Urology
DX: Z01.812 Encounter for preprocedural laboratory examination (principal); N20.1 Calculus of ureter; R31.29 Other microscopic hematuria
CPT/HCPCS: 36415; 80048; 85025

== ENCOUNTER 2022-10-06 08:00 | Day surgery (SDC) | payer MEDICARE ==
[2022-09-29 13:12] VITALS: BMI 41.1
--- NOTE | 2022-10-06 08:26 | XR ---
EXAMINATION TYPE: XR KUB DATE OF EXAM: 10/06/2022 COMPARISON: NONE HISTORY: Right ureteral calculus TECHNIQUE: One view abdominal series FINDINGS: The osseous structures are intact. The bowel gas pattern is nonspecific. IVC filter is seen. A right-sided ureteral stent is noted. Punctate calcification overlying the bladder is small to michelle cterize. No suspicious calcifications overlying the renal outlines. Faint 2 mm diameter calcification along the distal margin of the stent. IVC filter and surgical clips in the gallbladder fossa. IMPRESSION: 1. There is a faint calcification overlying the distal margin of the ureteral stent measuring 2 mm in diameter. Suspicious for distal ureteral calculus
[2022-10-06] MEDS ORDERED: LACTATED RINGERS 1,000 ML IV SCH (08:42)
[2022-10-06] MEDS ORDERED: DEXAMETHASONE SOD PHOSPHATE 4 MG/ML 1 ML VIAL IV ONE (08:42)
[2022-10-06] MEDS ORDERED: LIDOCAINE 1% (10MG/ML) FOR IV START INTRADERMA PRN (08:42)
[2022-10-06] MEDS ORDERED: HYDROmorphone 0.5 MG/0.5 ML SYRINGE IVP PRN (08:42)
[2022-10-06] MEDS ORDERED: ONDANSETRON 4 MG/2 ML VIAL IVP ONE ×2 (08:42→10:56)
[2022-10-06] MEDS ORDERED: MIDAZOLAM 2 MG/2 ML VIAL IV PRN (08:42)
[2022-10-06] MEDS ORDERED: SUCCINYLCHOLINE CHLORIDE 200 MG/10 ML VIAL IV ONE (09:29)
[2022-10-06] MEDS ORDERED: MIDAZOLAM 2 MG/2 ML VIAL ONE (09:29)
[2022-10-06] MEDS ORDERED: fentaNYL (PF) 50 MCG/ML 2 ML AMP ONE (09:29)
[2022-10-06] MEDS ORDERED: ROCURONIUM 10 MG/ML (5 ML VIAL) IV ONE (09:29)
[2022-10-06] MEDS ORDERED: GLYCOPYRROLATE 0.2 MG/ML 2 ML VIAL ONE (09:29)
[2022-10-06] MEDS ORDERED: PROPOFOL 10 MG/ML 20 ML VIAL IV ONE (09:29)
[2022-10-06] MEDS ORDERED: LIDOCAINE 2% INJ 20 MG/ML (2 ML VIAL) ONE (09:29)
[2022-10-06] MEDS ORDERED: NEOSTIGMINE 1 MG/ML 10 ML VIAL ONE (09:29)
[2022-10-06] MEDS: GENTAMICIN 120 MG in SODIUM CHLORIDE 0.9% 100 ML IVPB PRN ×2 (09:53→09:54)
--- NOTE | 2022-10-06 10:24 | P.HPIHPCON ---
History of Present Illness H&P Date: 10/06/22 Chief Complaint: Ureteral stone This is 77-year-old female status post stents insertion for septic stone on the stent. Presents today for definitive stone management. Option of right-sided ureteroscopy with holmium laser was discussed with her. Aware of the risk which includes but not limited to bleeding and infection, injury to the ureter. She understood all the risk and agreed to proceed with right-sided ureteroscopy, holmium laser lithotripsy, stone basketing and stent removal Consent for Procedure: I have explained the operation/procedure to the patient, including the risks, benefits, side effects, alternative therapies (including not receiving the proposed treatment or service), the likelihood of the patient achieving his/her goals, and potential recuperation problems for the procedure/sedation/analgesia, as well as any blood products, if indicated. I also explained to the patient the risks, benefits and side effects of the alternatives, as well as the risks related to not receiving the proposed procedure, care, treatment, or services. Past Medical History Past Medical History: Asthma, Deep Vein Thrombosis (DVT), Osteoarthritis (OA) Additional Past Medical History / Comment(s): Hx pancreatitis, kidney stones History of Any Multi-Drug Resistant Organisms: None Reported Past Surgical History: Hysterectomy, Joint Replacement, Orthopedic Surgery Additional Past Surgical History / Comment(s): Right knee replacement, cystocele, rectocele, Rt shoulder rotator cuff Past Anesthesia/Blood Transfusion Reactions: Family History of Problems w/ Anesthesia, Postoperative Nausea & Vomiting (PONV) Additional Past Anesthesia/Blood Transfusion Reaction / Comment(s): Mother has PONV Past Psychological History: Anxiety, Bipolar Smoking Status: Never smoker Past Alcohol Use History: Occasional Past Drug Use History: None Reported - Past Family History Brother(s) Family Medical History: Cancer Additional Family Medical History / Comment(s): throat, lung cancer Medications and Allergies Home Medications Medication Instructions Recorded Confirmed Type RX: ALPRAZolam [Xanax] 0.25 mg PO DAILY PRN 03/26/20 10/06/22 History RX: Furosemide [Lasix] 20 mg PO DAILY 09/17/22 10/06/22 History RX: Metoprolol Succinate (ER) 50 mg PO DAILY 09/17/22 10/06/22 History [Toprol XL] RX: lamoTRIgine [LaMICtal] 100 mg PO DAILY 09/17/22 10/06/22 History RX: traZODone HCL [Desyrel] 50 mg PO HS 09/17/22 10/06/22 History Vitamin D3(Unknown Dose) 1 tab PO DAILY 09/17/22 10/06/22 History Prochlorperazine [Compazine] 5 mg PO Q6HR PRN 2 Days #8 tab 09/21/22 10/06/22 Rx cefUROXime axetiL [Ceftin] 500 mg PO BID 7 Days #14 tab 09/21/22 10/06/22 Rx Cyanocobalamin [Vitamin B-12] 500 mcg PO DAILY 09/29/22 10/06/22 History Allergies Allergy/AdvReac Type Severity Reaction Status Date / Time codeine Allergy Rash/Hives Verified 10/06/22 09:08 Surgical - Exam Vital Signs Temp Pulse Resp BP Pulse Ox 96.9 F L 78 20 160/85 97 10/06/22 08:50 10/06/22 08:50 10/06/22 08:50 10/06/22 08:50 10/06/22 08:50 - General no distress, no pain - Eyes normal ocular movement, no pale - ENT normal nares, normal mucosa - Respiratory normal expansion, normal respiratory effort - Abdomen Abdomen: soft, non tender Assessment and Plan Assessment: OR for right-sided ureteroscopy, holmium laser lithotripsy, stone basketing and stent removal
--- NOTE | 2022-10-06 10:28 | P.OP ---
Date of Procedure: 10/06/22 Preoperative Diagnosis: Ureteral stone Postoperative Diagnosis: same Procedure(s) Performed: Right-sided ureteroscopy, holmium laser lithotripsy, stone basketing and stent removal Implants: none Anesthesia: GETA Pathology: other (right ureteral stone) Condition: stable Disposition: PACU Indications for Procedure: This is 77-year-old female status post stents insertion for septic stone on the stent. Presents today for definitive stone management. Option of right-sided ureteroscopy with holmium laser was discussed with her. Aware of the risk which includes but not limited to bleeding and infection, injury to the ureter. She understood all the risk and agreed to proceed with right-sided ureteroscopy, holmium laser lithotripsy, stone basketing and stent removal Operative Findings: Stone was seen in the mid ureter Description of Procedure: Patient brought to the operating room, general anesthesia was induced. She was prepped and draped in sterile fashion and placed in dorsal lithotomy position. Cystoscopy fitted and 21-Portuguese sheath was inserted per urethra, cystoscopy was performed which showed no abnormality within the bladder. Attention was then carried to the right ureteral orifice, the stent was removed to the meatus. Next a sensor wire was advanced through the stent the stent was removed with the wire in place. Next under fluoroscopy 1113 Portuguese access sheath was passed over the wire into the midureter. Next a flexible ureteroscope was inserted through the access sheath, stone was seen in the mid ureter. Using the holmium laser the stone was fragmented, stone fragments were removed using stone basket. At this time the ureteroscope was advanced all the way up to the kidney renoscopy was performed showed an additional stone in the midpole which was dusted. Repeat renoscopy showed no sizable stones or any additional stones within the kidney, pullback ureteroscopy was performed which showed no injury to the ureter or any sizable ureteral fragments. The bladder was emptied at the end of case. Patient tolerated procedure well was taken to recovery in stable condition
[2022-10-06 10:40] VITALS: TEMP 96.8
--- NOTE | 2022-10-06 10:53 | FL ---
Intraoperative/procedural fluoroscopic services were provided. Total fluoroscopy time is 10.0 seconds with a total of 2 submitted images to PACS. Please see the operative/procedural note for further det ails. DAP: [id number] mGym2
[2022-10-06] MEDS ORDERED: droPERidol 5 MG/2 ML VIAL IVP ONE (11:28)
[2022-10-06 12:34] VITALS: BP 143/72; PULSE 78; RESP 17
== END 2022-10-06 12:34 | disposition home or self-care (01) ==
LOC: OR 08:00
PROVIDERS: ATTEND Urology
DX: N20.1 Calculus of ureter (principal); J45.909 Unspecified asthma, uncomplicated; Z86.73 Personal history of transient ischemic attack (TIA), and cerebral infarction without residual deficits; M19.90 Unspecified osteoarthritis, unspecified site; Z90.710 Acquired absence of both cervix and uterus; Z86.59 Personal history of other mental and behavioral disorders
CPT/HCPCS: 82365; 74018; 52353; C1769; J2250; J0330; J1100; J2710; J0690; J2405; J3010; J1580; J2704; J1790; J2001

== ENCOUNTER → 2022-11-16 | Outpatient (CLI) | payer MEDICARE ==
--- NOTE | 2022-11-16 14:37 | MR ---
EXAMINATION TYPE: MR lumbar spine wo con DATE OF EXAM: 11/16/2022 2:26 PM CLINICAL INDICATION:Female, 77 years old with history of M43.16 spondylolisthesis lumbar region; PHH, Lower back pain, RLE radiculopathy. COMPARISON: None TECHNIQUE: Multi planar, multi sequence imaging was performed utilizing: T1-weighted, T2-weighted, a nd turbo inversion recovery imaging of the lumbar spine. IV Contrast: (None if empty) FINDINGS: Alignment: The lumbar vertebral bodies have preserved heights with grade 1 anterolisthesis of L5 on S 1. Cord: The conus medullaris and the distal spinal cord appear unremarkable with regards to their signa l intensity and morphology. Bones/Discs: Focal fatty marrow which is high T2 high T1 signal in the L1 vertebral body which suppre sses out on fat suppression sequences. Mild multilevel degeneration changes worse at L1-L2 anteriorly with osteophytes and Modic endplate changes. T12-L1: No evidence of significant spinal canal stenosis or neural foraminal stenosis. L1-L2: Disc bulge and facet joint arthropathy result in mild spinal canal and mild bilateral neural f oraminal stenosis. L2-L3: No evidence of significant spinal canal stenosis. Facet joint arthropathy mild bilateral neura l foraminal stenosis. L3-L4: No evidence of significant spinal canal stenosis. Facet joint arthropathy mild bilateral neura l foraminal stenosis. L4-L5: No evidence of significant spinal canal stenosis. Facet joint arthropathy mild bilateral neura l foraminal stenosis. L5-S1: The disc is rounded posterior morphology without significant spinal canal stenosis. Facet join t arthropathy with mild bilateral neural foraminal stenosis. No significant spinal canal or neural foraminal stenosis in the remainder of the visualized levels. Other findings: None. IMPRESSION: 1. No definitive evidence of disc herniation or significant spinal canal or neural foraminal stenosi s. 2. Mild disc degeneration with associated osteoarthritic changes. 3. Grade 1 anterolisthesis of L5 on S1.
== END | disposition home or self-care (01) ==
LOC: RADMRIMAIN 12:59
PROVIDERS: ATTEND Physical Medicine & Rehabilitation
DX: M43.16 Spondylolisthesis, lumbar region (principal); M41.26 Other idiopathic scoliosis, lumbar region; M16.11 Unilateral primary osteoarthritis, right hip; M47.26 Other spondylosis with radiculopathy, lumbar region; M51.16 Intervertebral disc disorders with radiculopathy, lumbar region
CPT/HCPCS: 72148

== ENCOUNTER → 2023-09-06 | Outpatient (CLI) | payer MEDICARE ==
[2023-09-06 16:21] LABS: African American GFR (CKD) >90 (>60 ml/min/1.73 sqM); Blood Urea Nitrogen 15 mg/dL (7-17); Non-African American GFR(CKD) 85 (>60 ml/min/1.73 sqM)
--- NOTE | 2023-09-06 16:52 | CT ---
EXAMINATION TYPE: CT angio chest CT DLP: 589.5 mGycm, Automated exposure control for dose reduction was used. DATE OF EXAM: 09/06/2023 4:44 PM COMPARISON: 06/12/2021. CLINICAL INDICATION:Female, 78 years old with history of Z86.711 PULMONARY EMBOLI,R05.9 COUGH, UNSPE CIFIED; mark TECHNIQUE/CONTRAST: CTA scan of the thorax is performed with IV Contrast, patient injected with 100 mL of Isovue 370, MIP images are created and reviewed these are created on a separate workstation.. FINDINGS: Pulmonary Artery: There is no evidence for a filling defect within the pulmonary vasculature to sugge st acute pulmonary embolism. The pulmonary artery is of normal size. Lungs/Pleura: No evidence of focal consolidation, pleural effusion or pneumothorax. Streaky atelectas is in the lung bases. Airway: Large airways are patent. Heart: The heart is mildly enlarged for size. Atherosclerosis of the arterial vasculature. Vasculature: No evidence of aortic aneurysm. IVC filter is partially visualized in the anterior vena cava. Mediastinum: No gross evidence of adenopathy.Small hiatal hernia. Musculoskeletal: No acute osseous abnormalities Soft Tissues/lymph nodes: Unremarkable. Lower neck: No significant findings. 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 Diffuse low-attenuation to the l iver. The gallbladder surgically absent. IMPRESSION: 1. No evidence of pulmonary embolism. 2. 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 Urology consultation recommended for management. 3. Small hiatal hernia. 4. Hepatic steatosis.
== END | disposition home or self-care (01) ==
LOC: RADCTMAIN 14:55
PROVIDERS: ATTEND Family Medicine
DX: K44.9 Diaphragmatic hernia without obstruction or gangrene (principal); K76.0 Fatty (change of) liver, not elsewhere classified; D17.71 Benign lipomatous neoplasm of kidney; Z86.711 Personal history of pulmonary embolism
CPT/HCPCS: 82565; 84520; 71275; 36415; Q9967

== ENCOUNTER → 2023-11-11 | Outpatient (CLI) | payer MEDICARE ==
--- NOTE | 2023-11-11 15:56 | US ---
EXAMINATION TYPE: US venous doppler duplex LE BI DATE OF EXAM: 11/11/2023 3:33 PM COMPARISON: 01/02/2022, 10/08/2021 CLINICAL INDICATION: Female, 78 years old with history of Z86.718 PERSONAL HISTORY OF OTHER VENOUS TH ROMBOSI; Hx left leg DVT with filter. Not on blood thinners. No leg symptoms. Difficulty breathing . SIDE PERFORMED: Bilateral TECHNIQUE: The lower extremity deep venous system is examined utilizing real time linear array sonog marisa with graded compression, color doppler sonography, and spectral doppler. VESSELS IMAGED: Common Femoral Vein Deep Femoral Vein Greater Saphenous Vein * Femoral Vein Popliteal Vein Small Saphenous Vein * Proximal Calf Veins (* superficial vessels) Right Leg: Negative for DVT Left Leg: Previously seen posterior heterogenous area visualized in mid femoral vein. IMPRESSION: 1. 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 [facility], , 11/11/2023 3:54 PM
== END | disposition home or self-care (01) ==
LOC: RADUSWWP 15:01
PROVIDERS: ATTEND Family Medicine
DX: R06.00 Dyspnea, unspecified (principal); Z86.718 Personal history of other venous thrombosis and embolism
CPT/HCPCS: 93970

== ENCOUNTER → 2024-08-21 | Outpatient (CLI) | payer MEDICARE ==
--- NOTE | 2024-08-21 14:56 | MM ---
Reason for Exam: Screening (asymptomatic). Last mammogram was performed 2 year(s) and 2 month(s) ago. Patient History: Menarche at age 14. First Full-Term at age 19. Left ovary removed at age 50. Right ovary removed at age 50. Hysterectomy at age 50. Postmenopausal. Patient has history of breast feeding. Estrogen for 7 years, 1 month, until age 60. Maternal grandmother had breast cancer, age 64. Risk Values: Catie 5 year model risk: 1.3%. NCI Lifetime model risk: 2.4%. Prior Study Comparison: 12/20/2017 Bilateral Screening Mammogram, [facility]. 06/20/2020 Bilateral Screening Mammogram, [facility]. 06/29/2022 Bilateral MG 3D screening mammo w/cad, [facility]. Tissue Density: There are scattered areas of fibroglandular density. Findings: Analyzed By CAD. There is no suspicious group of microcalcifications or new suspicious mass in either breast. Overall Assessment: Negative, BI-RAD 1 Management: Screening Mammogram of both breasts in 1 year. . Patient should continue monthly self-breast exams. A clinical breast exam by your physician is recommended on an annual basis. This exam should not preclude additional follow-up of suspicious palpable abnormalities. Note on Catie scores and lifetime risk: 1. A Catie score greater than 3% is considered moderate risk. If this is the case, consider specialist referral to assess eligibility for a risk reducing agent. 2. If overall lifetime risk for the development of breast cancer is 20% or higher, the patient may qualify for future screening with alternating mammogram and breast MRI. [facility], , 08/21/2024 2:41 PM. Electronically signed and approved by: Scottie Kiran M.D. Radiolog[facility]
== END | disposition home or self-care (01) ==
LOC: RADMAMWWP 13:57
PROVIDERS: ATTEND Family Medicine
DX: Z12.31 Encounter for screening mammogram for malignant neoplasm of breast (principal); R92.323 Mammographic fibroglandular density, bilateral breasts; Z78.0 Asymptomatic menopausal state; Z80.3 Family history of malignant neoplasm of breast
CPT/HCPCS: 77063; 77067